=== PATIENT | male | born 1950 | race Caucasian/White ===

== ENCOUNTER 2018-01-19 16:09 | Inpatient (IN) ==
[2018-01-19 17:15] LABS: Basophils % 0.3 %; Eosinophils # 0.2 K/mcL (0.0-0.6); Eosinophils % 1.7 %; Hematocrit 38.9 % (37.5-50.1); Hemoglobin 13.1 g/dL (12.9-16.9); Immature Granulocytes % 0.3 % (0-4); Lymphocytes # 0.8 K/mcL (0.6-4.6); Mean Corpuscular HGB Conc 33.7 g/dL (31.6-35.5); Mean Corpuscular Hemoglobin 28.3 pg (28.0-33.3); Mean Platelet Volume 8.3 fL (9.4-12.4); Monocytes # 0.7 K/mcL (0.0-1.3); Neutrophils # 8.3 K/mcL (1.6-8.9); Platelet Count 198 K/mcL (140-400); Red Blood Count 4.63 M/mcL (4.19-5.50); Red Cell Distribution Width 13.1 % (11.5-14.5); Segmented Neutrophils % 82.7 %
[2018-01-19 17:32] LABS: Bilirubin,Urine Negative (Negative); Blood,Urine Negative (Negative); Clarity,Urine Clear (Clear); Color,Urine Yellow (Yellow); Glucose,Urine (UA) Normal (Normal); Ketones,Urine 15 mg/dL (Negative); Leukocyte Esterase,Urine Negative (Negative); Nitrite,Urine Negative (Negative); PH,Urine 7.5 pH Units (5.0-8.0); Protein,Urine Negative (Neg-Trace); Specific Gravity,Urine 1.008 (1.010-1.025); Urobilinogen,Urine Normal (Normal)
--- NOTE | 2018-01-19 17:35 | Emergency Department Note ---
Disposition Clinical Impression: Orthopnea, Hyponatremia Fluid overload Qualifiers: Hypervolemia type: unspecified Qualified Code(s): E87.70 - Fluid overload, unspecified Disposition: Admitted As Inpatient Condition: Fair Referrals: Renee Wheeler MD [Primary Care Provider] - Forms: ED Satisfaction Letter Time of Disposition: 20:21 General Adult HPI - General Chief complaint: ED Shortness of Breath/Dyspnea Stated complaint: "lots of chest congestion, feet swelling" Time Seen by Provider: 01/19/18 16:30 Source: patient Limitations: no limitations Nursing Notes Reviewed: Yes Vital Signs Reviewed: Yes - History of Present Illness HPI Narrative: 67-year-old male history of COPD up to 6 L oxygen supplementation and CAD s/p CABG presents emergency department with chest congestion in leg swelling. Other past several days he reports coughing up white frothy sputum. He is noticed that his legs are intermittently more swollen. He feels more short of breath when he lays down. He wears 4 L at baseline and 6 when he exerts himself or moves around. He denies any chest pain. He does noticed some acid when he lays down as well, and up he takes omeprazole for that. He denies any fevers. Denies any rhinorrhea. 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 Patient's bypass was performed up at [facility] in [facility] in 2005. Pain Scale: 0 - Related Data Home Medications Medication Instructions Recorded Confirmed Albuterol Sulfate [Proventil Hfa] 1 puff IH Q4HR PRN 03/08/16 03/08/16 Aspirin [Lo-Dose Aspirin EC] 81 mg PO DAILY 03/08/16 03/08/16 Budesonide/Formoterol 160/4.5 2 puff IH BIDR 03/08/16 03/08/16 [Symbicort 160/4.5] Carvedilol [Coreg] 6.25 mg PO BID 03/08/16 03/08/16 Guaifenesin 400 mg PO BID 03/08/16 03/08/16 Levothyroxine [Synthroid] 112 mcg PO DAILY 03/08/16 03/08/16 Losartan [Cozaar] 50 mg PO BID 03/08/16 03/08/16 Multivit,Ther Iron,Ca,FA & Min 1 tab PO DAILY 03/08/16 03/08/16 Nitroglycerin [Nitrostat] 0.4 mg SL PRN PRN 03/08/16 03/08/16 Omeprazole 20 mg PO BID 03/08/16 03/08/16 Potassium 595 mg PO PRN PRN 03/08/16 03/08/16 Simvastatin [Zocor] 10 mg PO HS 03/08/16 03/08/16 hydroCHLOROthiazide 12.5 mg PO DAILY 03/21/16 03/21/16 [Hydrochlorothiazide] Allergies Allergy/AdvReac Type Severity Reaction Status Date / Time Penicillins Allergy unknown Verified 01/19/18 20:48 All systems ED: reviewed and negative except as stated. Review of Systems: As Per HPI Constitutional: Reports: weakness. Denies: fever, chills Cardiovascular: Denies: chest pain Respiratory: Reports: cough, dyspnea Gastrointestinal: Denies: abdominal pain, nausea, vomiting Genitourinary: Denies: urgency, dysuria Musculoskeletal: Denies: back pain Integumentary: Denies: rash, abrasion Neurological: Denies: headache, weakness Past Medical History - Past Medical History Attestation: Yes The following information was validated with the patient. Source: patient Medical history: Reports: cancer, COPD, coronary artery disease, GERD, hyperlipidemia, hypertension, malignancy, myocardial infarction, thyroid disease Psychiatric history: Reports: no psych history - Social History Smoking Status: Former smoker Smokeless Tobacco Status: No Alcohol use: Reports: none Drug use: Reports: none Physical Exam - General Limitations: no limitations General appearance: alert, in no apparent distress - Head Head exam: atraumatic, normocephalic, normal inspection - Eye Eye exam: Present: normal appearance, PERRL, EOMI - ENT ENT exam: normal exam, normal oropharynx, mucous membranes moist - Neck Neck exam: Present: normal inspection, full ROM, trachea midline. Absent: tenderness, meningismus - Chest Chest inspection: Present: normal inspection, symmetric chest wall rise. Absent : tenderness - Respiratory Respiratory exam: Present: normal lung sounds bilaterally. Absent: respiratory distress - Expanded Respiratory Exam Location: rales: Lower - Cardiovascular Cardiovascular exam: Present: regular rate, normal rhythm, normal heart sounds. Absent: systolic murmur, diastolic murmur - Abdominal Exam Abdominal exam: Present: soft, Non-Tender, normal bowel sounds. Absent: tenderness, distention, guarding, rebound, rigidity - Extremities Exam Extremities exam: Present: normal inspection, full ROM, pedal edema (+1 bilateral). Absent: tenderness - Back Exam Back exam: Present: normal inspection, full ROM. Absent: tenderness, CVA tenderness (R), CVA tenderness (L) - Neurological Exam Neurological exam: Present: alert, oriented X3, CN II-XII intact, normal gait - Expanded Neurological Exam Patient oriented to: Present: person, place, time Speech: Present: fluid speech Cranial nerves: EOM function (II, III, IV, ): Normal, facial sensation (V): Normal, facial palsy (VII): Normal, gag reflex (IX): Normal, spinal accessory function (XI): Normal, tongue deviation (XII): Normal Motor strength - LUE: 5/5 Motor strength - RUE: 5/5 Motor strength - LLE: 5/5 Motor strength - RLE: 5/5 Upper motor neuron exam: syd neglect: Absent bilaterally, pronator drift: Absent bilaterally Sensory exam upper extremity: light touch: Normal Sensory exam lower extremity: light touch: Normal - Psychiatric Psychiatric exam: Present: normal affect, normal mood - Skin Skin exam: Present: warm, dry, intact, normal color. Absent: rash, cyanosis, diaphoresis Course Course Narrative: Patient presents with complaint of cough congestion orthopnea and leg edema. This has been ongoing for the past several days. Denies history of congestive heart failure. On examination patient slightly hypertensive but afebrile. He maintains good oxygen saturation on his home 4L. lungs are clear with diminished breath sounds in the lower bases. Heart's regular rate and rhythm. He has edema till bilateral lower extremities. They are symmetrical. No history of blood clots. Will evaluate for possible pneumonia or congestive heart failure. Patients in agreement with this plan. Final disposition pending workup. - Reevaluation(s) Reevaluation #1: Review of his labs do not show a leukocytosis. He has acute on chronic hyponatremia 123. This is the low doses ever been. His serum osmolality is also low. Suspect this is likely a fluid overload picture. He will likely require diuresis. His urinalysis is not consistent with infection. Patient ambulated throughout the department in his oxygen saturation did drop to 86% while on 6 L. He did not feel sure breath at that time. However when he returned to his room he was orthopneic. On examination he appears fluid overloaded and he is symptomatic with shortness of breath. Review of his labs show likely fluid overloaded given his low osmolality, hyponatremia hypochloremia. Patient has been given 40 mg of [address]ix here. CT scan of the chest did not reveal pneumonia or chest congestion. However given his symptoms recommended admission. Patient is agreeable to this plan as he lives by himself and is not feel safe going home. Impression is fluid overload, leg edema, shortness of breath and orthopnea. Time: 20:16 - Consultations Consultation #1: Spoke with on-call hospitalist chrali Garcia to admit for orthopnea, hyponatremia, fluid overload, leg edema. No further orders at this time Time: 20:48 Vital Signs Temperature 97.7 F 01/19/18 16:11 Pulse Rate 84 01/19/18 16:11 Respiratory Rate 22 01/19/18 16:11 Blood Pressure 167/88 01/19/18 16:11 O2 Sat by Pulse Oximetry 98 01/19/18 16:11 Temperature 97.7 F 01/19/18 16:11 Pulse Rate 92 01/19/18 16:45 Respiratory Rate 14 01/19/18 16:45 Blood Pressure 167/97 01/19/18 16:45 O2 Sat by Pulse Oximetry 97 01/19/18 16:46 Oxygen Delivery Oxygen Delivery Room Air Medical Decision Making - MDM Narrative Medical decision making narrative: Patient was discussed with my attending physician who agrees with ED management and final disposition. They independently evaluated the patient. Please refer to their attestation to this encounter for additional information. This note was generated by [employer] voice recognition software and as a result grammatical or spelling errors may occur using this program. - Medical Records Medical records reviewed: Yes I reviewed the patient's medical records. - Lab Data Lab results reviewed: Yes I reviewed the patient's lab results. Result diagrams: 01/19/18 17:06 01/19/18 17:06 Lab Results 01/19/18 01/19/18 01/19/18 Range/Units 17:06 17:06 17:06 WBC 10.0 (4.3-11.1) K/mcL RBC 4.63 (4.19-5.50) M/mcL Hgb 13.1 (12.9-16.9) g/dL Hct 38.9 (37.5-50.1) % MCV 84.0 (83.0-100.0) fL MCH 28.3 (28.0-33.3) pg MCHC 33.7 (31.6-35.5) g/dL RDW 13.1 (11.5-14.5) % Plt Count 198 (140-400) K/mcL MPV 8.3 L (9.4-12.4) fL Immature Gran % 0.3 (0-4) % Seg Neutrophils % 82.7 % Lymphocytes % 8.0 % Monocytes % 7.0 % Eosinophils % 1.7 % Basophils % 0.3 % Neutrophils # 8.3 (1.6-8.9) K/mcL Lymphocytes # 0.8 (0.6-4.6) K/mcL Monocytes # 0.7 (0.0-1.3) K/mcL Eosinophils # 0.2 (0.0-0.6) K/mcL Basophils # 0.0 (0.0-0.2) K/mcL Sodium 123 L (136-145) mEq/L Potassium 4.1 (3.5-5.1) mEq/L Chloride 81 L (98-107) mEq/L Carbon Dioxide 33 H (23-29) mEq/L BUN 13 (8-23) mg/dL Creatinine 0.59 L (0.70-1.30) mg/dL Est GFR ( Amer) > 60 (> 60) Est GFR (Non-Af Amer) > 60 (> 60) BUN/Creatinine Ratio 22 (6-26) Glucose 100 (70-105) mg/dL Calculated Osmolality 256 L (280-300) Calcium 9.5 (8.6-10.3) mg/dL Troponin I < 0.03 (< 0.04) ng/mL B-Natriuretic Peptide 29 (Less than 100) pg/mL Urine Color (Yellow) Urine Clarity (Clear) Urine pH (5.0-8.0) pH Units Ur Specific [place] (1.010-1.025) Urine Protein (Neg-Trace) mg/dL Urine Glucose (UA) (Normal) mg/dL Urine Ketones (Negative) mg/dL Urine Blood (Negative) Urine Nitrite (Negative) Urine Bilirubin (Negative) Urine Urobilinogen (Normal) mg/dL Ur Leukocyte Esterase (Negative) Ur Culture Indicated? (NO) 01/19/18 Range/Units 17:19 WBC (4.3-11.1) K/mcL RBC (4.19-5.50) M/mcL Hgb (12.9-16.9) g/dL Hct (37.5-50.1) % MCV (83.0-100.0) fL MCH (28.0-33.3) pg MCHC (31.6-35.5) g/dL RDW (11.5-14.5) % Plt Count (140-400) K/mcL MPV (9.4-12.4) fL Immature Gran % (0-4) % Seg Neutrophils % % Lymphocytes % % Monocytes % % Eosinophils % % Basophils % % Neutrophils # (1.6-8.9) K/mcL Lymphocytes # (0.6-4.6) K/mcL Monocytes # (0.0-1.3) K/mcL Eosinophils # (0.0-0.6) K/mcL Basophils # (0.0-0.2) K/mcL Sodium (136-145) mEq/L Potassium (3.5-5.1) mEq/L Chloride (98-107) mEq/L Carbon Dioxide (23-29) mEq/L BUN (8-23) mg/dL Creatinine (0.70-1.30) mg/dL Est GFR ( Amer) (> 60) Est GFR (Non-Af Amer) (> 60) BUN/Creatinine Ratio (6-26) Glucose (70-105) mg/dL Calculated Osmolality (280-300) Calcium (8.6-10.3) mg/dL Troponin I (< 0.04) ng/mL B-Natriuretic Peptide (Less than 100) pg/mL Urine Color Yellow (Yellow) Urine Clarity Clear (Clear) Urine pH 7.5 (5.0-8.0) pH Units Ur Specific [place] 1.008 L (1.010-1.025) Urine Protein Negative (Neg-Trace) mg/dL Urine Glucose (UA) Normal (Normal) mg/dL Urine Ketones 15 H (Negative) mg/dL Urine Blood Negative (Negative) Urine Nitrite Negative (Negative) Urine Bilirubin Negative (Negative) Urine Urobilinogen Normal (Normal) mg/dL Ur Leukocyte Esterase Negative (Negative) Ur Culture Indicated? NO (NO) - Radiology Data Radiology results reviewed: Yes I reviewed the patient's radiology results. Chest X-Ray 01/19/18 16:37 IMPRESSION: Stable portable study. D/ / Elba John Cha, MD / Elba John Cha, MD Interpreting Provider: Elba John Cha, MD Chest CT 01/19/18 18:16 IMPRESSION: No acute abnormality in the chest on the noncontrast CT. Stable elevation of the right hemidiaphragm with scarring at the right lung base. Moderate emphysema. D/ / 01/19/2018 19:32:45 Frankie Mckenzie MD / emily Interpreting Provider: Frankie Mckenzie MD - EKG Data EKG #1 EKG attestation: Yes I reviewed and interpreted this EKG. EKG results narrative: EKG performed 1641 normal sinus rhythm 81 beats per minute, intraventricular conduction delay, no ST elevation or depression, intervals within normal limits. Compared to EKG performed 09/13/2014 shows similar consistent findings of normal sinus rhythm Attestation Statement - Attestation Attestation: I, Carson Bush DO, examined this patient [id number] and my medical decision-making was reviewed with Hermes Fink DO , Resident Physician. I agree with the documented findings, disposition and treatment plan as described except to the extent set forth below. Please see my progress notes for details.
[2018-01-19 17:44] LABS: BUN/Creatinine Ratio 22 (6-26); Blood Urea Nitrogen 13 mg/dL (8-23); Calcium 9.5 mg/dL (8.6-10.3); Carbon Dioxide 33 mEq/L (23-29); Chloride 81 mEq/L (98-107); Glucose 100 mg/dL (70-105); Osmolality,Calculated 256 (280-300); Potassium 4.1 mEq/L (3.5-5.1); Sodium 123 mEq/L (136-145); Troponin I < 0.03 ng/mL (< 0.04); eGFR For African Americans > 60 (> 60); eGFR For Non-African Americans > 60 (> 60)
--- NOTE | 2018-01-19 19:06 | Emergency Department Note ---
Disposition Clinical Impression: Orthopnea, Hyponatremia Fluid overload Qualifiers: Hypervolemia type: unspecified Qualified Code(s): E87.70 - Fluid overload, unspecified Disposition: Admitted As Inpatient Condition: Fair Referrals: Renee Wheeler MD [Primary Care Provider] - Forms: ED Satisfaction Letter Time of Disposition: 20:51 General Adult HPI - General Chief complaint: ED Shortness of Breath/Dyspnea Stated complaint: "lots of chest congestion, feet swelling" Time Seen by Provider: 01/19/18 16:30 Source: patient Limitations: no limitations - History of Present Illness Pain Scale: 0 - Related Data Home Medications Medication Instructions Recorded Confirmed Albuterol Sulfate [Proventil Hfa] 1 puff IH Q4HR PRN 03/08/16 03/08/16 Aspirin [Lo-Dose Aspirin EC] 81 mg PO DAILY 03/08/16 03/08/16 Budesonide/Formoterol 160/4.5 2 puff IH BIDR 03/08/16 03/08/16 [Symbicort 160/4.5] Carvedilol [Coreg] 6.25 mg PO BID 03/08/16 03/08/16 Guaifenesin 400 mg PO BID 03/08/16 03/08/16 Levothyroxine [Synthroid] 112 mcg PO DAILY 03/08/16 03/08/16 Losartan [Cozaar] 50 mg PO BID 03/08/16 03/08/16 Multivit,Ther Iron,Ca,FA & Min 1 tab PO DAILY 03/08/16 03/08/16 Nitroglycerin [Nitrostat] 0.4 mg SL PRN PRN 03/08/16 03/08/16 Omeprazole 20 mg PO BID 03/08/16 03/08/16 Potassium 595 mg PO PRN PRN 03/08/16 03/08/16 Simvastatin [Zocor] 10 mg PO HS 03/08/16 03/08/16 hydroCHLOROthiazide 12.5 mg PO DAILY 03/21/16 03/21/16 [Hydrochlorothiazide] Allergies Allergy/AdvReac Type Severity Reaction Status Date / Time Penicillins Allergy unknown Verified 01/19/18 20:48 Past Medical History - Past Medical History Medical history: Reports: cancer, COPD, coronary artery disease, GERD, hyperlipidemia, hypertension, malignancy, myocardial infarction, thyroid disease Psychiatric history: Reports: no psych history - Social History Smoking Status: Former smoker Smokeless Tobacco Status: No Alcohol use: Reports: none Drug use: Reports: none Physical Exam - General Limitations: no limitations General appearance: alert Course Vital Signs Temperature 97.7 F 01/19/18 16:11 Pulse Rate 84 01/19/18 16:11 Respiratory Rate 22 01/19/18 16:11 Blood Pressure 167/88 01/19/18 16:11 O2 Sat by Pulse Oximetry 98 01/19/18 16:11 Temperature 97.7 F 01/19/18 16:11 Pulse Rate 92 01/19/18 16:45 Respiratory Rate 14 01/19/18 16:45 Blood Pressure 167/97 01/19/18 16:45 O2 Sat by Pulse Oximetry 97 01/19/18 16:46 Oxygen Delivery Oxygen Delivery Room Air Medical Decision Making - Lab Data Result diagrams: 01/19/18 17:06 01/19/18 17:06 Lab Results 01/19/18 01/19/18 01/19/18 Range/Units 17:06 17:06 17:06 WBC 10.0 (4.3-11.1) K/mcL RBC 4.63 (4.19-5.50) M/mcL Hgb 13.1 (12.9-16.9) g/dL Hct 38.9 (37.5-50.1) % MCV 84.0 (83.0-100.0) fL MCH 28.3 (28.0-33.3) pg MCHC 33.7 (31.6-35.5) g/dL RDW 13.1 (11.5-14.5) % Plt Count 198 (140-400) K/mcL MPV 8.3 L (9.4-12.4) fL Immature Gran % 0.3 (0-4) % Seg Neutrophils % 82.7 % Lymphocytes % 8.0 % Monocytes % 7.0 % Eosinophils % 1.7 % Basophils % 0.3 % Neutrophils # 8.3 (1.6-8.9) K/mcL Lymphocytes # 0.8 (0.6-4.6) K/mcL Monocytes # 0.7 (0.0-1.3) K/mcL Eosinophils # 0.2 (0.0-0.6) K/mcL Basophils # 0.0 (0.0-0.2) K/mcL Sodium 123 L (136-145) mEq/L Potassium 4.1 (3.5-5.1) mEq/L Chloride 81 L (98-107) mEq/L Carbon Dioxide 33 H (23-29) mEq/L BUN 13 (8-23) mg/dL Creatinine 0.59 L (0.70-1.30) mg/dL Est GFR ( Amer) > 60 (> 60) Est GFR (Non-Af Amer) > 60 (> 60) BUN/Creatinine Ratio 22 (6-26) Glucose 100 (70-105) mg/dL Calculated Osmolality 256 L (280-300) Calcium 9.5 (8.6-10.3) mg/dL Troponin I < 0.03 (< 0.04) ng/mL B-Natriuretic Peptide 29 (Less than 100) pg/mL Urine Color (Yellow) Urine Clarity (Clear) Urine pH (5.0-8.0) pH Units Ur Specific [place] (1.010-1.025) Urine Protein (Neg-Trace) mg/dL Urine Glucose (UA) (Normal) mg/dL Urine Ketones (Negative) mg/dL Urine Blood (Negative) Urine Nitrite (Negative) Urine Bilirubin (Negative) Urine Urobilinogen (Normal) mg/dL Ur Leukocyte Esterase (Negative) Ur Culture Indicated? (NO) 01/19/18 Range/Units 17:19 WBC (4.3-11.1) K/mcL RBC (4.19-5.50) M/mcL Hgb (12.9-16.9) g/dL Hct (37.5-50.1) % MCV (83.0-100.0) fL MCH (28.0-33.3) pg MCHC (31.6-35.5) g/dL RDW (11.5-14.5) % Plt Count (140-400) K/mcL MPV (9.4-12.4) fL Immature Gran % (0-4) % Seg Neutrophils % % Lymphocytes % % Monocytes % % Eosinophils % % Basophils % % Neutrophils # (1.6-8.9) K/mcL Lymphocytes # (0.6-4.6) K/mcL Monocytes # (0.0-1.3) K/mcL Eosinophils # (0.0-0.6) K/mcL Basophils # (0.0-0.2) K/mcL Sodium (136-145) mEq/L Potassium (3.5-5.1) mEq/L Chloride (98-107) mEq/L Carbon Dioxide (23-29) mEq/L BUN (8-23) mg/dL Creatinine (0.70-1.30) mg/dL Est GFR ( Amer) (> 60) Est GFR (Non-Af Amer) (> 60) BUN/Creatinine Ratio (6-26) Glucose (70-105) mg/dL Calculated Osmolality (280-300) Calcium (8.6-10.3) mg/dL Troponin I (< 0.04) ng/mL B-Natriuretic Peptide (Less than 100) pg/mL Urine Color Yellow (Yellow) Urine Clarity Clear (Clear) Urine pH 7.5 (5.0-8.0) pH Units Ur Specific [place] 1.008 L (1.010-1.025) Urine Protein Negative (Neg-Trace) mg/dL Urine Glucose (UA) Normal (Normal) mg/dL Urine Ketones 15 H (Negative) mg/dL Urine Blood Negative (Negative) Urine Nitrite Negative (Negative) Urine Bilirubin Negative (Negative) Urine Urobilinogen Normal (Normal) mg/dL Ur Leukocyte Esterase Negative (Negative) Ur Culture Indicated? NO (NO) Attestation Statement - Attestation Attestation: I, Carson Bush DO, examined this patient [id number] and my medical decision-making was reviewed with Hermes Fink DO , Resident Physician. I agree with the documented findings, disposition and treatment plan as described except to the extent set forth below. Please see my progress notes for details. 67-year-old male presents emergency room for evaluation of chest congestion and coughing of white colored sputum. Patient denies any recent fevers or chills nausea vomiting or diarrhea. Denies any headache or vision change. Patient does complain of orthopnea home to the point where he does feel short of breath while lying flat. He typically uses 4-6 L of oxygen at home chronically secondary to COPD and poor lung function. Patient has not had any new medications or medication changes at this point. Physical exam shows a relatively well-appearing gentleman tolerating his oxygen with no abnormalities in his vital signs. His head is atraumatic his mucous members are moist his full range of motion the neck with no stridor no trismus. His lungs are clear to auscultation bilaterally. He has had intermittent twinges of discomfort in his chest wall but he denies any specific anginal-like chest pain. Abdomen is soft nontender nondistended with no guarding no rigidity. Patient denies any urinary symptoms complaints of blood in his stool or in his urine at this time. Patient ambulated into the emergency room under his own power. He lives by himself at home and does not require any help to take care of himself. Patient is concerning for cardiac versus pulmonary-related issue causing the symptoms here today. He was screening evaluation a chest x-ray EKG labs according CBC chemistry troponin and BNP and urinalysis. Disposition will be determined once full workup and treatment course are established. He does not appear to have any coarse breath sounds or wheezing on examination and low clinical suspicion for exacerbation of COPD. please see documentation of the physical exam, medical intervention, medical decision-making and disposition in the resident physician's note. No critical care provider the patient's treatment course at this time [address] is unremarkable this time. Labs appear to be at baseline except for hyponatremia as well as decreased osmolality. This is concerning for fluid overload. Patient was ambulated around the emergency room his pulse ox did drop to 87% on his typical 6 L. Patient denied any shortness of breath at that time. Patient is orthopneic while lying in the bed. He also has been coughing up white frothy colored sputum over the last several days. This is all new in comparison to his previous fluid overload symptoms. There is concern for nondiagnostic imaging modalities despite the fact that the patient is orthopneic and appearance of fluid overload based on symptoms and presentation. Patient is also concerned because the low sodium is ever had as well as potentially volume overloaded. Patient will be admitted at this time for diuresis as well as concentration of the sodium and then reevaluation of the fluid overload symptoms. Patient does not feel comfortable going home to his house at this time considering does live by himself. Is also concerned that he may fall or had issues secondary to his increased work of breathing. Admission process to be completed at this point. Patient will be observed in emergency room to the admission process is completed.
[2018-01-19] MEDS ORDERED: Furosemide 40 MG/4 ML VIAL IVP ONE (20:14)
--- NOTE | 2018-01-19 21:03 | Internal Med History&Physical ---
Date of Encounter: 01/20/18 Time of Encounter: 21:00 Internal Medicine - H&P: HPI Chief complaint: Swelling Admitted From: Emergency Dept Plans for Post Hospital Care: Home History of present illness: Mr. Nugent is a 67 year old male with history of COPD on about 4-6 L, coronary artery disease, GERD, hyperlipidemia, hypertension, malignancy, myocardial infarction, thyroid disease who presents to ED complains of chest congestion. He has a chronic cough but nothing above baseline. He has noticed that his legs are more swollen has been shortened breath as well. No chest pain. Dyspnea is mostly on exertion. The patient recently had his valsartan switched to amlodipine and Coreg by his manager scientific a couple of months ago. Denies fever, chills, nausea, vomiting, chest pain, abdominal pain, diarrhea, constipation, urinary symptoms, or neurological symptoms. In the ED the patient had laboratory workup that showed normal BNP and a clear chest x-ray. Sodium was 123. The patient was given Lasix 40 mg IV in the ED. Past Med Surg Social Fam HX - Past Medical History Medical history: cancer, COPD, coronary artery disease, GERD, hyperlipidemia, hypertension, malignancy, myocardial infarction, thyroid disease Psychiatric history: no psych history - Past Surgical History Additional surgical history: dermatological - Social History Smoking Status: Former smoker Smokeless Tobacco Status: No Alcohol use: none Drug use: none - Family History Brother Adopted: No Family Member Ethnicity: Non- Living Status: Hx Family Cardiac Disorders: No Hx Family Respiratory Disorders: No Hx Family Cancer: Yes (all over) Hx Family GI Disorders: No Hx Family Endocrine Disorder: No Hx Family Neuromuscular Disorders: No Hx Family Neurologic Disorders: No Hx Family HEENT Disorders: Yes (glasses) Hx Family Autoimmune Disorders: No Internal Medicine - H&P: Meds Albuterol Sulfate [Proventil Hfa] 1 puff IH Q4HR PRN 03/08/16 [History] Aspirin [Lo-Dose Aspirin EC] 81 mg PO DAILY 03/08/16 [History] Budesonide/Formoterol 160/4.5 [Symbicort 160/4.5] 2 puff IH BIDR 03/08/16 [ History] Carvedilol [Coreg] 3.125 mg PO BID 03/08/16 [History] Guaifenesin 400 mg PO BID 03/08/16 [History] Levothyroxine [Synthroid] 125 mcg PO DAILY 03/08/16 [History] Multivit,Ther Iron,Ca,FA & Min 1 tab PO DAILY 03/08/16 [History] Nitroglycerin [Nitrostat] 0.4 mg SL PRN PRN 03/08/16 [History] Omeprazole 20 mg PO BID 03/08/16 [History] Potassium 595 mg PO PRN PRN 03/08/16 [History] Simvastatin [Zocor] 10 mg PO HS 03/08/16 [History] hydroCHLOROthiazide [Hydrochlorothiazide] 25 mg PO DAILY 03/21/16 [History] Amlodipine Besylate [Amlodipine Besylate] 10 mg PO DAILY 01/19/18 [History] Clopidogrel [Plavix] 75 mg PO DAILY 01/19/18 [History] Finasteride [Proscar] 5 mg PO DAILY 01/19/18 [History] 3 Allergy/AdvReac Type Severity Reaction Status Date / Time Penicillins Allergy unknown Verified 01/19/18 20:48 All Systems PM: A 10-system review of systems was performed and is negative for pertinent findings except as documented above in the HPI. Review of systems: All systems reviewed are negative except as mentioned above - Constitutional Vitals: Temp Pulse Resp BP Pulse Ox 97.7 F 92 14 167/97 97 01/19/18 16:11 01/19/18 16:45 01/19/18 16:45 01/19/18 16:45 01/19/18 16:46 Exam: GEN: NAD HEENT: AT, NC, No cyanosis, oral mucosa is moist, No JVD Lymphatics: No lymphadenoapthy Eyes: Extrocular muscles intact, anicteric CVS:RRR. S1, S2, No m/r/g RESP: CTAB ABD: Soft, NT, ND, +BS EXT: 1+ lower extremity edema at the feet and ankles, No rashes, 2+ DP NEURO: Nonfocal, CN II-XII intact, No focal motor or sensory deficits Psych: Cooperative, Not anxious or depressed Internal Med - H&P Results - Labs CBC & Chem 7: 01/19/18 17:06 01/20/18 01:51 Labs: Short CBC 01/19/18 Range/Units 17:06 WBC 10.0 (4.3-11.1) K/mcL Hgb 13.1 (12.9-16.9) g/dL Hct 38.9 (37.5-50.1) % Plt Count 198 (140-400) K/mcL Neutrophils # 8.3 (1.6-8.9) K/mcL BMP 01/19/18 17:06 Sodium 123 L Potassium 4.1 Chloride 81 L Carbon Dioxide 33 H BUN 13 Creatinine 0.59 L Glucose 100 Calcium 9.5 Cardiac Enzymes 01/19/18 Range/Units 17:06 Troponin I < 0.03 (< 0.04) ng/mL Urine 01/19/18 Range/Units 17:19 Urine Color Yellow (Yellow) Urine Clarity Clear (Clear) Urine pH 7.5 (5.0-8.0) pH Units Ur Specific [place] 1.008 L (1.010-1.025) Urine Protein Negative (Neg-Trace) mg/dL Urine Glucose (UA) Normal (Normal) mg/dL - Impressions ITS Impressions Chest X-Ray 01/19/18 16:37 IMPRESSION: Stable portable study. D/ / Elba John Cha, MD / Elba John Cha, MD Interpreting Provider: Elba John Cha, MD Chest CT 01/19/18 18:16 IMPRESSION: No acute abnormality in the chest on the noncontrast CT. Stable elevation of the right hemidiaphragm with scarring at the right lung base. Moderate emphysema. D/ / 01/19/2018 19:32:45 Frankie Mckenzie MD / emily Interpreting Provider: Frankie Mckenzie MD - Assessment and plan (1) Edema Current Visit: Yes Status: Acute Assessment and plan: I do not believe the patient is in CHF exacerbation. I believe this possibly could be secondary to Norvasc. Will hold that for now. check an echo. Patient was given 40 mg IV Lasix in the ED. I would hold off on more Lasix till repeat sodium in 6 hours. May continue lasix if sodium trends up. dopplers to rule out DVT. Qualifiers: Edema type: unspecified Qualified Code(s): R60.9 - Edema, unspecified (2) Hyponatremia Current Visit: Yes Status: Acute Assessment and plan: Possibly from being on HCTZ vs. new CHF. Will get urine sodium and urine osm. Hold off on more lasix for now till repeat sodium in 6 hours. Will dose further lasix if sodium improves after first dose of lasix given in the ED. May need nephrology consult. Given lasix 40 mg IV in the ED. (3) CAD (coronary artery disease) Current Visit: Yes Status: Acute Assessment and plan: c/w cardiac meds. Qualifiers: Coronary Disease-Associated Artery/Lesion type: bypass graft [place] vs. transplanted heart: [place] heart Associated angina: without angina Qualified Code(s): I25.810 - Atherosclerosis of coronary artery bypass graft(s) without angina pectoris (4) COPD (chronic obstructive pulmonary disease) Current Visit: Yes Status: Acute Assessment and plan: Not in exacerbation. c/w inhalers. c/w O2 support. On chronic O2 Qualifiers: COPD type: unspecified COPD Qualified Code(s): J44.9 - Chronic obstructive pulmonary disease, unspecified (5) HTN (hypertension) Current Visit: Yes Status: Acute Assessment and plan: Hold norvasc. c/w rest of home antihypertensives. Qualifiers: Hypertension type: essential hypertension Qualified Code(s): I10 - Essential (primary) hypertension (6) DVT prophylaxis Current Visit: Yes Status: Acute Assessment and plan: heparin SQ - Time Spent With Patient Total time spent is greater than 50% in coordination of care (as documented) at patient's floor/unit and/or counseling patient:
[2018-01-19] MEDS ORDERED: Naloxone 0.4 MG/ML INJ IVP PRN (21:08)
[2018-01-19] MEDS ORDERED: Acetaminophen 325 MG TABLET PO PRN (21:08)
[2018-01-20 02:39] LABS: BUN/Creatinine Ratio 21 (6-26); Blood Urea Nitrogen 13 mg/dL (8-23); Calcium 9.1 mg/dL (8.6-10.3); Carbon Dioxide 37 mEq/L (23-29); Chloride 82 mEq/L (98-107); Glucose 92 mg/dL (70-105); Osmolality,Calculated 264 (280-300); Potassium 3.4 mEq/L (3.5-5.1); Sodium 127 mEq/L (136-145); eGFR For African Americans > 60 (> 60); eGFR For Non-African Americans > 60 (> 60)
[2018-01-20 07:06] LABS: Basophils # 0.1 K/mcL (0.0-0.2); Basophils % 0.5 %; Eosinophils # 0.2 K/mcL (0.0-0.6); Eosinophils % 2.1 %; Hematocrit 39.6 % (37.5-50.1); Hemoglobin 12.8 g/dL (12.9-16.9); Immature Granulocytes % 0.4 % (0-4); Lymphocytes # 0.7 K/mcL (0.6-4.6); Lymphocytes % 7.4 %; Mean Corpuscular HGB Conc 32.3 g/dL (31.6-35.5); Mean Corpuscular Hemoglobin 26.8 pg (28.0-33.3); Mean Platelet Volume 9.2 fL (9.4-12.4); Monocytes # 0.9 K/mcL (0.0-1.3); Monocytes % 8.9 %; Neutrophils # 7.7 K/mcL (1.6-8.9); Platelet Count 236 K/mcL (140-400); Red Blood Count 4.77 M/mcL (4.19-5.50); Red Cell Distribution Width 13.2 % (11.5-14.5); Segmented Neutrophils % 80.7 %
[2018-01-20 07:22] LABS: BUN/Creatinine Ratio 23 (6-26); Blood Urea Nitrogen 12 mg/dL (8-23); Carbon Dioxide 36 mEq/L (23-29); Chloride 82 mEq/L (98-107); Glucose 95 mg/dL (70-105); Osmolality,Calculated 260 (280-300); Potassium 3.8 mEq/L (3.5-5.1); Sodium 125 mEq/L (136-145); eGFR For African Americans > 60 (> 60); eGFR For Non-African Americans > 60 (> 60)
[2018-01-20] MEDS: Aspirin Enteric Coated 81 MG Tablet PO SCH (07:56)
[2018-01-20] MEDS: Multivit/Ca/Min/Fe/FA 1 TAB TABLET PO SCH (07:56)
[2018-01-20] MEDS: Finasteride 5 MG TABLET PO SCH (07:56)
[2018-01-20] MEDS ORDERED: Furosemide 40 MG/4 ML VIAL IVP SCH (08:00)
[2018-01-20] MEDS: Budesonide/Formoterol 160/4.5 MDI IH SCH ×2 (10:15→20:34)
[2018-01-20] MEDS ORDERED: Nitroglycerin 0.4 MG TAB.SUBL SL PRN (11:53)
--- NOTE | 2018-01-20 11:54 | Internal Med Progress Note ---
Date of Encounter: 01/20/18 Time of Encounter: 11:52 - Assessment and plan (1) Hyponatremia Current Visit: Yes Status: Chronic Assessment and plan: Chronic Asymptomatic At baseline Resume home meds (2) Edema Current Visit: Yes Status: Acute Assessment and plan: Unlikely CHF BNP is WNL Patient has no chest symptoms, Chest CT is unremarkable Hold lasix Await ECHO Continue home dose of norvasc and HCTZ Follow Venous doppler of LE Qualifiers: Edema type: unspecified Qualified Code(s): R60.9 - Edema, unspecified (3) CAD (coronary artery disease) Current Visit: Yes Status: Chronic Assessment and plan: c/w cardiac meds. Qualifiers: Coronary Disease-Associated Artery/Lesion type: bypass graft [place] vs. transplanted heart: [place] heart Associated angina: without angina Qualified Code(s): I25.810 - Atherosclerosis of coronary artery bypass graft(s) without angina pectoris (4) COPD (chronic obstructive pulmonary disease) Current Visit: Yes Status: Chronic Assessment and plan: Not in exacerbation. c/w inhalers. c/w O2 support. On chronic O2 Qualifiers: COPD type: unspecified COPD Qualified Code(s): J44.9 - Chronic obstructive pulmonary disease, unspecified (5) HTN (hypertension) Current Visit: Yes Status: Chronic Assessment and plan: REsume home meds Qualifiers: Hypertension type: essential hypertension Qualified Code(s): I10 - Essential (primary) hypertension (6) DVT prophylaxis Current Visit: Yes Status: Acute Assessment and plan: heparin SQ (7) Chronic respiratory failure Current Visit: Yes Status: Chronic Assessment and plan: continue home O2 Qualifiers: Respiratory failure complication: hypoxia Qualified Code(s): J96.11 - Chronic respiratory failure with hypoxia - Time Spent With Patient Total time spent is greater than 50% in coordination of care (as documented) at patient's floor/unit and/or counseling patient: - Subjective Interval history: Seen and evaluated at bedside Known CRF on O2 at home admitted and being managed for edema, unlikely CHF BNP is WNL O2 is at baseline, edema is trace No new complains Awaiting ECHO hyponatremia is chronic and dates back to 2014 - Constitutional Vitals: Temp Pulse Resp BP Pulse Ox 97.4 F L 67 14 132/80 95 01/20/18 10:39 01/20/18 10:39 01/20/18 10:39 01/20/18 10:39 01/20/18 10:39 General appearance: Present: A&O X 3, pleasant, no acute distress - Head Head exam: Present: atraumatic, normocephalic - Eye Eye exam: Present: PERRL, conjuntiva pink, sclera anicteric Pupils: Present: PERRL - Neck Neck exam general surgery: Present: supple, trachea midline. Absent: lymphadenopathy - Respiratory Respiratory exam: Present: CTAB. Absent: accessory muscle use, rales, rhonchi, wheezes - Cardiovascular Cardiovascular exam: Present: RRR, +S1, +S2. Absent: diastolic murmur, gallop, rubs, systolic murmur - GI/Abdominal GI/Abdominal exam: Present: normal bowel sounds, soft, no peritoneal signs. Absent: distended, tenderness - Extremities Exam Extremities exam: Present: pedal edema (trace), warm, radial pulses palpable and symmetrical. Absent: calf tenderness, cyanotic - Neurological Exam Neurological exam: Present: alert, CN II-XII intact, oriented X3, no focal deficits. Absent: pronater drift, facial droop, speech deficit - Skin Skin exam: Present: dry, intact Internal Medicine: Result - Labs CBC & Chem 7: 01/20/18 05:48 01/20/18 05:48 Labs: Short CBC 01/20/18 Range/Units 05:48 WBC 9.5 (4.3-11.1) K/mcL Hgb 12.8 L (12.9-16.9) g/dL Hct 39.6 (37.5-50.1) % Plt Count 236 (140-400) K/mcL Neutrophils # 7.7 (1.6-8.9) K/mcL BMP 01/20/18 01/20/18 01:51 05:48 Sodium 127 L 125 L Potassium 3.4 L 3.8 Chloride 82 L 82 L Carbon Dioxide 37 H 36 H BUN 13 12 Creatinine 0.62 L 0.53 L Glucose 92 95 Calcium 9.1 9.0 Consult Discharge Plan - Plan Referrals: Renee Wheeler MD [Primary Care Provider] - 01/23/18 2:00 pm
--- NOTE | 2018-01-20 17:22 | Electrocardiograph Report ---
[place] [id number] Test Date: 2018-01-19 Pat Name: Austin Nugent Department: 104 Room: 2A12 Gender: M [employer]: RENU : 1950 Requested By: Hermes Fink Order Number: [id number] Reading MD: Patricia Antonio Measurements Intervals [place] Rate: 81 P: 13 MI: 169 QRS: -1 QRSD: 114 T: 74 QT: 376 QTc: 414 Interpretive Statements SINUS RHYTHM INTRAVENTRICULAR CONDUCTION DELAY [110+ ms QRS DURATION] NONSPECIFIC T-WAVE ABNORMALITY Electronically Signed On 01-20-2018 17:20:49 EDT by Patricia Antonio
[2018-01-21 02:31] LABS: BUN/Creatinine Ratio 22 (6-26); Blood Urea Nitrogen 15 mg/dL (8-23); Carbon Dioxide 36 mEq/L (23-29); Chloride 83 mEq/L (98-107); Glucose 100 mg/dL (70-105); Osmolality,Calculated 259 (280-300); Potassium 4.1 mEq/L (3.5-5.1); Sodium 124 mEq/L (136-145); eGFR For African Americans > 60 (> 60); eGFR For Non-African Americans > 60 (> 60)
[2018-01-21] MEDS: Budesonide/Formoterol 160/4.5 MDI IH SCH ×2 (07:35→19:53)
[2018-01-21] MEDS ORDERED: Isovue-370 500 ML INFUS..BTL IV ONE (08:07)
[2018-01-21] MEDS: amLODIPine 5 MG TABLET PO SCH (08:13)
[2018-01-21] MEDS: Finasteride 5 MG TABLET PO SCH (08:13)
[2018-01-21] MEDS: Multivit/Ca/Min/Fe/FA 1 TAB TABLET PO SCH (08:13)
[2018-01-21] MEDS: Aspirin Enteric Coated 81 MG Tablet PO SCH (08:13)
--- NOTE | 2018-01-21 08:18 | Internal Med Progress Note ---
Date of Encounter: 01/21/18 Time of Encounter: 08:00 - Assessment and plan (1) Diastolic CHF Current Visit: Yes Status: Acute Assessment and plan: Acute diastolic CHF. continue lasix. Echo showed EF 55% with diastolic dysfunction. Improving Qualifiers: Heart failure chronicity: acute Qualified Code(s): I50.31 - Acute diastolic (congestive) heart failure (2) Hyponatremia Current Visit: Yes Status: Chronic Assessment and plan: Seen by renal.Will d/c HCTZ and continue lasix. monitor sodium levels. Cardiac diet changed to regular. Follow up TSH, cortisol, serum osmolalility and uric acid per renal recs (3) Edema Current Visit: Yes Status: Acute Assessment and plan: Likely 2/2 to acute diastolic CHF.Continue lasix Qualifiers: Edema type: unspecified Qualified Code(s): R60.9 - Edema, unspecified (4) CAD (coronary artery disease) Current Visit: Yes Status: Chronic Assessment and plan: c/w cardiac meds. Qualifiers: Coronary Disease-Associated Artery/Lesion type: bypass graft [place] vs. transplanted heart: [place] heart Associated angina: without angina Qualified Code(s): I25.810 - Atherosclerosis of coronary artery bypass graft(s) without angina pectoris (5) COPD (chronic obstructive pulmonary disease) Current Visit: Yes Status: Chronic Assessment and plan: Not in exacerbation. c/w inhalers. c/w O2 support. On chronic O2 Qualifiers: COPD type: unspecified COPD Qualified Code(s): J44.9 - Chronic obstructive pulmonary disease, unspecified (6) HTN (hypertension) Current Visit: Yes Status: Chronic Assessment and plan: REsume home meds Qualifiers: Hypertension type: essential hypertension Qualified Code(s): I10 - Essential (primary) hypertension (7) DVT prophylaxis Current Visit: Yes Status: Acute Assessment and plan: heparin SQ (8) Chronic respiratory failure Current Visit: Yes Status: Chronic Assessment and plan: continue home O2 Qualifiers: Respiratory failure complication: hypoxia Qualified Code(s): J96.11 - Chronic respiratory failure with hypoxia - Time Spent With Patient Total time spent is greater than 50% in coordination of care (as documented) at patient's floor/unit and/or counseling patient: - Subjective Interval history: NO acute events overnight - Constitutional Vitals: Temp Pulse Resp BP Pulse Ox 97.7 F 80 16 102/68 94 06/05/18 07:33 01/21/18 07:33 01/21/18 07:35 01/21/18 07:33 01/21/18 07:35 General appearance: Present: A&O X 3, pleasant, no acute distress - Head Head exam: Present: atraumatic, normocephalic - Eye Eye exam: Present: PERRL, conjuntiva pink, sclera anicteric Pupils: Present: PERRL - Neck Neck exam general surgery: Present: supple, trachea midline. Absent: lymphadenopathy - Respiratory Respiratory exam: Present: CTAB. Absent: accessory muscle use, rales, rhonchi, wheezes - Cardiovascular Cardiovascular exam: Present: RRR, +S1, +S2. Absent: diastolic murmur, gallop, rubs, systolic murmur - GI/Abdominal GI/Abdominal exam: Present: normal bowel sounds, soft, no peritoneal signs. Absent: distended, tenderness - Extremities Exam Extremities exam: Present: warm, radial pulses palpable and symmetrical. Absent : calf tenderness, cyanotic, pedal edema - Neurological Exam Neurological exam: Present: CN II-XII intact, oriented X3, no focal deficits. Absent: pronater drift, facial droop, speech deficit - Skin Skin exam: Present: dry, intact Internal Medicine: Result - Labs CBC & Chem 7: 01/20/18 05:48 01/21/18 01:32 Labs: BMP 01/21/18 01:32 Sodium 124 L Potassium 4.1 Chloride 83 L Carbon Dioxide 36 H BUN 15 Creatinine 0.68 L Glucose 100 Calcium 9.0 - Impressions Impressions Echocardiogram 01/20/18 13:00 Impressions: Technically challenging - not all windows are well visualized. LVEF 55%. Mild left ventricular diastolic dysfunction. RV is not well evaluated. RA size not well visualized. RA appears compressed by an extracardiac structure. Consider dedicated CT chest. Mild tricuspid regurgitation. No pulmonary hypertension by TR gradient. IVC not well visualized to estimate RVSP. Aneurysmal interatrial septal. There is a PFO by agitated saline contrast. Pleural fluid is not seen on this study. Left Ventricular Wall Motion: Rest Echo Findings The apex, apical inferior, mid inferior, basal inferior, apical anterior, mid anterior, basal anterior, mid anterior septal, mid inferior lateral, basal anterior septal and basal inferior lateral souza were not visualized. All other wall segments showed normal motion. Findings: Study Quality * Technically challenging - not all windows are well visualized. ECG Findings * Normal sinus rhythm. Left Ventricle * LVEF 55%. * Normal LV chamber size. * LV wall thickness measurements not well obtained. * Mild left ventricular diastolic dysfunction. Right Ventricle * RV is not well evaluated. Left Atrium * Moderately dilated left atrium. Right Atrium * RA size not well visualized. RA appears compressed by extracardiac structure. Aortic Valve * No aortic regurgitation. * Aortic valve not well visualized. * No aortic stenosis. Mitral Valve * No mitral regurgitation. * Normal mitral valve structure. * No mitral stenosis. Tricuspid Valve * Tricuspid valve not well visualized. * Mild tricuspid regurgitation. Pulmonic Valve * Pulmonic valve is not well visualized. * No pulmonic stenosis. * No pulmonic regurgitation. Pulmonary Artery * Pulmonary artery not well visualized. Aorta * Normally sized aortic root. Pericardium * There is no pericardial effusion present. Interatrial Septum * Aneurysmal interatrial septal. * There is a PFO by agitated saline contrast, IVC * The IVC is not well evaluated. Consult Discharge Plan - Plan Referrals: Renee Wheeler MD [Primary Care Provider] - 01/23/18 2:00 pm
[2018-01-21] MEDS ORDERED: hydroCHLOROthiazide 25 MG TABLET PO SCH (09:00)
--- NOTE | 2018-01-21 13:35 | Nephrology Consult Note ---
<Earnestine Zazueta - Last Filed: 01/21/18 13:42> Date of Encounter: 01/21/18 Time of Encounter: 13:19 Assessment and Plan (1) Hyponatremia Status: Chronic Hydrochlorothiazide d/kriss. Cardiac diet changed to regular diet with 1.5 fluid restriction. Serum Osmo, uric acid, cortisol and TSH ordered. (2) Edema Status: Acute Seems resolved, no edema with examination. Qualifiers: Edema type: unspecified Qualified Code(s): R60.9 - Edema, unspecified (3) HTN (hypertension) Status: Chronic BP 150/91 HCTZ d/kriss. Qualifiers: Hypertension type: essential hypertension Qualified Code(s): I10 - Essential (primary) hypertension History of Present Illness - Reason for Consult Consult date: 01/21/18 hyponatremia - Chief Complaint shortness of breath, edema - History of Present Illness Mr. Nugent is a 67 year old male who presented to the ED for chest congestion and bilateral lower extremity edema. PMH: COPD, coronary artery disease, GERD, hyperlipidemia, & hypertension. No known kidney disease or family history of kidney disease. Has not seen a certified pediatric nurse practitioner that he knows of. Initial NA was 123 this stay but past records indicate that his NA has been low since at least 2014. Serum studies and urine studies ordered. Past Med Surg Social Fam HX - Past Medical History Medical history: cancer, COPD, coronary artery disease, GERD, hyperlipidemia, hypertension, malignancy, myocardial infarction, thyroid disease Psychiatric history: no psych history - Past Surgical History Additional surgical history: dermatological - Social History Smoking Status: Former smoker Smokeless Tobacco Status: No Alcohol use: none Drug use: none - Family History Brother Adopted: No Family Member Ethnicity: Non- Living Status: Hx Family Cardiac Disorders: No Hx Family Respiratory Disorders: No Hx Family Cancer: Yes (all over) Hx Family GI Disorders: No Hx Family Endocrine Disorder: No Hx Family Neuromuscular Disorders: No Hx Family Neurologic Disorders: No Hx Family HEENT Disorders: Yes (glasses) Hx Family Autoimmune Disorders: No Medications and Allergies Albuterol Sulfate [Proventil Hfa] 1 puff IH Q4HR PRN 03/08/16 [History] Budesonide/Formoterol 160/4.5 [Symbicort 160/4.5] 2 puff IH QAM 03/08/16 [ History] Carvedilol [Coreg] 3.125 mg PO BID 03/08/16 [History] Multivitamin [One Daily Essential] 1 tab PO DAILY 03/08/16 [History] Nitroglycerin [Nitrostat] 0.4 mg SL Q5M PRN 03/08/16 [History] Omeprazole [PriLOSEC] 40 mg PO DAILY 03/08/16 [History] Simvastatin [Zocor] 10 mg PO HS 03/08/16 [History] Amlodipine Besylate 10 mg PO DAILY 01/19/18 [History] Clopidogrel [Plavix] 75 mg PO DAILY 01/19/18 [History] Finasteride [Proscar] 5 mg PO DAILY 01/19/18 [History] Aspirin [Lo-Dose Aspirin EC] 81 mg PO DAILY 01/20/18 [History] Levothyroxine [Synthroid] 112 mcg PO 0630 01/20/18 [History] Loratadine [Claritin] 10 mg PO DAILY 01/20/18 [History] Tamsulosin [Flomax] 0.4 mg PO DAILY 01/20/18 [History] Furosemide [Lasix] 40 mg PO BID #60 tab 01/22/18 [Rx] GuaiFENesin ER [Mucinex] 600 mg PO BID #60 tbbp.12hr 01/22/18 [Rx] Sodium Chloride [Sodium Chloride Tab] 1 gm PO BID #60 tablet 01/22/18 [Rx] 3 Allergy/AdvReac Type Severity Reaction Status Date / Time Penicillins Allergy unknown Verified 01/20/18 12:31 Review of Systems Nose, mouth and throat: no dizziness Cardiovascular: no chest pain at rest Respiratory: cough, no wheezing Gastrointestinal: no change in bowel habits Neurological: no dizziness, no focal weakness, no tremor(s) Exam - Vital Signs Vital signs: Initial Vital Signs Temp Pulse Resp BP Pulse Ox 97.7 F 84 22 167/88 98 01/19/18 16:11 01/19/18 16:11 01/19/18 16:11 01/19/18 16:11 01/19/18 16:11 Vital Signs - Last 8 Hours Temp Pulse Resp BP Pulse Ox 01/21/18 11:51 97.4 F L 70 16 150/91 95 01/21/18 07:35 16 94 01/21/18 07:33 97.7 F 80 15 102/68 94 Intake and Output 01/20/18 01/21/18 01/21/18 23:59 07:59 15:59 Intake Total 480 / 480 Output Total 600 / 600 Balance 480 / 480 -600 / -600 Intake: Oral 480 / 480 Output: Urine 600 / 600 Other: Meal Dinner Percent of Meal Consumed 100% - General Appearance General appearance: well-developed, well-nourished, appears started age EENT: ATNC, hearing intact, vision intact Neck: supple Respiratory: clear Cardiology: no edema, regular rate, regular rhythm, normal S1, normal S2 Gastrointestinal: normoactive bowel sounds, no tenderness, no guarding Integumentary: no rash, warm and dry Neurologic: alert and oriented x3 Psychiatric: mood/affect appropriate, cooperative Results - Lab Results 01/20/18 05:48 01/21/18 01:32 Most recent lab results Calcium 9.0 mg/dL (8.6-10.3) 01/21/18 01:32 Magnesium 1.6 mg/dL (1.6-2.6) 01/21/18 06:33 Urine Sodium 79.8 mEq/L 01/20/18 21:25 Consult Discharge Plan - Plan Referrals: Bandar Dacosta MD [Partnered Physician] - 02/20/18 11:40 am (Please follow up as schedule...) Gerardo Casarez DO [Partnered Physician] - 02/12/18 11:30 am (Please follow up as schedule..) Renee Wheeler MD [Primary Care Provider] - 01/23/18 2:00 pm (Please follow up as schedule...) Prescriptions: Furosemide [Lasix] 40 mg PO BID #60 tab GuaiFENesin ER [Mucinex] 600 mg PO BID #60 tbbp.12hr Sodium Chloride [Sodium Chloride Tab] 1 gm PO BID #60 tablet <David Choe - Last Filed: 01/27/18 07:12> Date of Encounter: 01/21/18 Exam - Vital Signs Vital signs: Initial Vital Signs Temp Pulse Resp BP Pulse Ox 97.7 F 84 22 167/88 98 01/19/18 16:11 01/19/18 16:11 01/19/18 16:11 01/19/18 16:11 01/19/18 16:11 Results - Lab Results 01/22/18 05:24 01/22/18 05:24 Most recent lab results Calcium 9.2 mg/dL (8.6-10.3) 01/22/18 05:24 Magnesium 1.6 mg/dL (1.6-2.6) 01/21/18 06:33 Urine Sodium 79.8 mEq/L 01/20/18 21:25 - Attending Attestation I examined this patient and my medical decision-making was reviewed with the Resident Physician. I agree with the documented findings, disposition and treatment plan as described except to the extent set forth below. Pt seen and examined with hyponatremia that appears chronic on review with HCTZ noted as one of his medication in addition to lasix. Will stop HCTZ immediately and initiate hyponatremia workup.
[2018-01-21 14:41] LABS: Uric Acid 4.8 mg/dL (2.3-7.6)
[2018-01-21 14:51] LABS: Thyroid Stimulating Hormone 1.274 mcIU/mL (0.340-5.600)
[2018-01-21] MEDS ORDERED: GuaiFENesin Liq 200 MG/10 ML UDC PO PRN (15:18)
[2018-01-22 06:05] LABS: Basophils % 0.4 %; Eosinophils # 0.3 K/mcL (0.0-0.6); Eosinophils % 2.4 %; Hematocrit 40.6 % (37.5-50.1); Hemoglobin 13.4 g/dL (12.9-16.9); Immature Granulocytes % 0.4 % (0-4); Lymphocytes # 0.9 K/mcL (0.6-4.6); Lymphocytes % 8.1 %; Mean Corpuscular Hemoglobin 27.1 pg (28.0-33.3); Monocytes % 8.5 %; Neutrophils # 9.1 K/mcL (1.6-8.9); Platelet Count 228 K/mcL (140-400); Red Blood Count 4.95 M/mcL (4.19-5.50); Red Cell Distribution Width 13.1 % (11.5-14.5); Segmented Neutrophils % 80.2 %
[2018-01-22 06:21] LABS: BUN/Creatinine Ratio 25 (6-26); Blood Urea Nitrogen 14 mg/dL (8-23); Calcium 9.2 mg/dL (8.6-10.3); Carbon Dioxide 34 mEq/L (23-29); Chloride 81 mEq/L (98-107); Glucose 95 mg/dL (70-105); Osmolality,Calculated 256 (280-300); Potassium 4.1 mEq/L (3.5-5.1); Sodium 123 mEq/L (136-145); eGFR For African Americans > 60 (> 60); eGFR For Non-African Americans > 60 (> 60)
[2018-01-22 06:27] VITALS: BP 131/84
[2018-01-22] MEDS: Budesonide/Formoterol 160/4.5 MDI IH SCH (07:21)
--- NOTE | 2018-01-22 07:22 | Discharge Summary ---
- NOTES TO OUTPATIENT PROVIDER Notes to Outpatient Provider: Follow up with cardiology and nephrology Orders not resulted at time of discharge: Pending orders 01/23/18 04:00 Basic Metabolic Panel AM 0400 CBC [Complete Blood Count] [HEME] AM 0400 01/24/18 04:00 Basic Metabolic Panel AM 0400 CBC [Complete Blood Count] [HEME] AM 0400 01/25/18 04:00 Basic Metabolic Panel AM 0400 CBC [Complete Blood Count] [HEME] AM 0400 01/26/18 04:00 Basic Metabolic Panel AM 0400 CBC [Complete Blood Count] [HEME] AM 0400 01/27/18 04:00 Basic Metabolic Panel AM 0400 CBC [Complete Blood Count] [HEME] AM 0400 Date of Encounter: 01/22/18 Time of Encounter: 07:15 - Discharge Diagnosis (1) Diastolic CHF Priority: Primary Status: Acute Assessment and Plan: Acute diastolic CHF. continue lasix. Echo showed EF 55% with diastolic dysfunction. Improving Comments: 67 year old male with history of COPD on about 4-6 L, coronary artery disease, GERD, hyperlipidemia, hypertension, malignancy, myocardial infarction, thyroid disease who presents to ED complains of chest congestion. He has a chronic cough but nothing above baseline. He has noticed that his legs are more swollen has been shortened breath as well. He was assessed with acute worsening of diastolic CHF and started on diuresis with lasix IV BID. His symptoms improved and he was discharged with lasix. His home med of HCTZ was discontinued on discharge. He was alos noted to be hyponatremic which appears to be chronic. renal was consulted who will follow up with him outpatient. They discharged him on sodium tablets. His metobolic workup for hyponatremic incluiding TSh, cortisol came back WNL. Qualifiers: Heart failure chronicity: acute Qualified Code(s): I50.31 - Acute diastolic (congestive) heart failure (2) Hyponatremia Priority: Secondary Status: Chronic (3) Edema Priority: Secondary Status: Acute Qualifiers: Edema type: unspecified Qualified Code(s): R60.9 - Edema, unspecified (4) CAD (coronary artery disease) Priority: Secondary Status: Chronic Qualifiers: Coronary Disease-Associated Artery/Lesion type: bypass graft [place] vs. transplanted heart: [place] heart Associated angina: without angina Qualified Code(s): I25.810 - Atherosclerosis of coronary artery bypass graft(s) without angina pectoris (5) COPD (chronic obstructive pulmonary disease) Priority: Secondary Status: Chronic Qualifiers: COPD type: unspecified COPD Qualified Code(s): J44.9 - Chronic obstructive pulmonary disease, unspecified (6) HTN (hypertension) Priority: Secondary Status: Chronic Qualifiers: Hypertension type: essential hypertension Qualified Code(s): I10 - Essential (primary) hypertension (7) DVT prophylaxis Priority: Secondary Status: Acute (8) Chronic respiratory failure Priority: Secondary Status: Chronic Qualifiers: Respiratory failure complication: hypoxia Qualified Code(s): J96.11 - Chronic respiratory failure with hypoxia Hospital course: Mr. Nugent is a 67 year old male - Time Spent with Patient Total time spent providing and/or coordinating discharge services: - Discharge Medications Prescriptions: Furosemide [Lasix] 40 mg PO BID #60 tab GuaiFENesin ER [Mucinex] 600 mg PO BID #60 tbbp.12hr Sodium Chloride [Sodium Chloride Tab] 1 gm PO BID #60 tablet Home Medications: Albuterol Sulfate [Proventil Hfa] 1 puff IH Q4HR PRN 03/08/16 [History] Budesonide/Formoterol 160/4.5 [Symbicort 160/4.5] 2 puff IH QAM 03/08/16 [ History] Carvedilol [Coreg] 3.125 mg PO BID 03/08/16 [History] Multivitamin [One Daily Essential] 1 tab PO DAILY 03/08/16 [History] Nitroglycerin [Nitrostat] 0.4 mg SL Q5M PRN 03/08/16 [History] Omeprazole [PriLOSEC] 40 mg PO DAILY 03/08/16 [History] Simvastatin [Zocor] 10 mg PO HS 03/08/16 [History] Amlodipine Besylate 10 mg PO DAILY 01/19/18 [History] Clopidogrel [Plavix] 75 mg PO DAILY 01/19/18 [History] Finasteride [Proscar] 5 mg PO DAILY 01/19/18 [History] Aspirin [Lo-Dose Aspirin EC] 81 mg PO DAILY 01/20/18 [History] Levothyroxine [Synthroid] 112 mcg PO 0630 01/20/18 [History] Loratadine [Claritin] 10 mg PO DAILY 01/20/18 [History] Tamsulosin [Flomax] 0.4 mg PO DAILY 01/20/18 [History] Furosemide [Lasix] 40 mg PO BID #60 tab 01/22/18 [Rx] GuaiFENesin ER [Mucinex] 600 mg PO BID #60 tbbp.12hr 01/22/18 [Rx] Sodium Chloride [Sodium Chloride Tab] 1 gm PO BID #60 tablet 01/22/18 [Rx] Allergies/Adverse Reactions: 3 Allergy/AdvReac Type Severity Reaction Status Date / Time Penicillins Allergy unknown Verified 01/20/18 12:31 Date of admission: 01/19/18 21:30 Primary care physician: Renee Wheeler MD Consults: 01/21/18 08:29 Consult to Nephrology [CONS] Routine Consulting Provider: [facility] Reason for Consult: acute on chronic hyponatremia Call Completed: Yes - Constitutional Vitals: Temp Pulse Resp BP Pulse Ox 98.1 F 77 14 131/84 89 01/22/18 06:24 01/22/18 06:24 01/22/18 06:24 01/22/18 06:24 01/22/18 06:24 General appearance: Present: A&O X 3, pleasant, no acute distress - Head Head exam: Present: atraumatic, normocephalic - Eye Eye exam: Present: PERRL, conjuntiva pink, sclera anicteric Pupils: Present: PERRL - Neck Neck exam general surgery: Present: supple, trachea midline. Absent: lymphadenopathy - Respiratory Respiratory exam: Present: CTAB. Absent: accessory muscle use, rales, rhonchi, wheezes - Cardiovascular Cardiovascular exam: Present: RRR, +S1, +S2. Absent: diastolic murmur, gallop, rubs, systolic murmur - GI/Abdominal GI/Abdominal exam: Present: normal bowel sounds, soft, no peritoneal signs. Absent: distended, tenderness - Extremities Exam Extremities exam: Present: warm, radial pulses palpable and symmetrical. Absent : calf tenderness, cyanotic, pedal edema - Neurological Exam Neurological exam: Present: CN II-XII intact, oriented X3, no focal deficits. Absent: pronater drift, facial droop, speech deficit - Skin Skin exam: Present: dry, intact - Patient Status Disposition: Home, Self-Care Condition: Fair - Discharge Instructions Follow Up With: Bandar Dacosta MD [Partnered Physician] - 02/20/18 11:40 am (Please follow up as schedule...) Gerardo Casarez DO [Partnered Physician] - 02/12/18 11:30 am (Please follow up as schedule..) Renee Wheeler MD [Primary Care Provider] - 01/23/18 2:00 pm (Please follow up as schedule...)
[2018-01-22] MEDS: Aspirin Enteric Coated 81 MG Tablet PO SCH (09:07)
[2018-01-22] MEDS: Multivit/Ca/Min/Fe/FA 1 TAB TABLET PO SCH (09:07)
[2018-01-22] MEDS: amLODIPine 5 MG TABLET PO SCH (09:07)
[2018-01-22] MEDS: Finasteride 5 MG TABLET PO SCH (09:08)
--- NOTE | 2018-01-22 10:59 | Nephrology Progress Note ---
Date of Encounter: 01/22/18 Time of Encounter: 10:57 - Assessment and Plan (1) Hyponatremia Current Visit: Yes Status: Chronic Sodium chloride tablets ordered. BMP in 1 week. F/U with [facility] in 2-4 weeks. (2) Edema Current Visit: Yes Status: Acute Resolved. Qualifiers: Edema type: unspecified Qualified Code(s): R60.9 - Edema, unspecified (3) HTN (hypertension) Current Visit: Yes Status: Chronic [id number] Qualifiers: Hypertension type: essential hypertension Qualified Code(s): I10 - Essential (primary) hypertension Subjective Principal diagnosis: edema,chest congestion Interval history: Pt seen and examined. Objective - Vital Signs Vital signs: Vital Signs Temp Pulse Resp BP Pulse Ox 01/22/18 07:22 18 91 01/22/18 06:24 98.1 F 77 14 131/84 89 01/22/18 05:13 97.4 F L 88 14 121/75 96 01/22/18 00:31 98.2 F 84 15 134/83 96 01/21/18 19:54 18 95 01/21/18 19:40 97.5 F L 71 16 153/84 94 01/21/18 16:23 97.6 F 64 16 158/87 95 01/21/18 11:51 97.4 F L 70 16 150/91 95 Intake and Output 01/21/18 01/22/18 01/22/18 23:59 07:59 15:59 Intake Total 550 / 550 100 / 100 Output Total 600 / 600 800 / 800 0 / 0 Balance -600 / -600 -250 / -250 100 / 100 Intake: Oral 550 / 550 100 / 100 Output: Urine 600 / 600 800 / 800 0 / 0 Other: Weight 89.993 kg Patient Weight 01/22/18 23:59 Weight 89.993 kg - General Appearance General appearance: Present: well-developed, well-nourished EENT: Present: ATNC, hearing intact, vision intact Neck: Present: supple Respiratory: Present: clear Cardiology: Present: no edema, regular rate, regular rhythm Gastrointestinal: Present: normoactive bowel sounds, no tenderness, no guarding Integumentary: Present: no rash, warm and dry Neurologic: Present: alert and oriented x3 Psychiatric: Present: mood/affect appropriate, cooperative - Lab 01/22/18 05:24 01/22/18 05:24 Most recent lab results Calcium 9.2 mg/dL (8.6-10.3) 01/22/18 05:24 Magnesium 1.6 mg/dL (1.6-2.6) 01/21/18 06:33 Urine Sodium 79.8 mEq/L 01/20/18 21:25 Consult Discharge Plan - Plan Referrals: Bandar Dacosta MD [Partnered Physician] - 02/20/18 11:40 am (Please follow up as schedule...) Gerardo Casarez DO [Partnered Physician] - 02/12/18 11:30 am (Please follow up as schedule..) Renee Wheeler MD [Primary Care Provider] - 01/23/18 2:00 pm (Please follow up as schedule...) Prescriptions: Furosemide [Lasix] 40 mg PO BID #60 tab GuaiFENesin ER [Mucinex] 600 mg PO BID #60 tbbp.12hr
== END 2018-01-22 11:38 | disposition home or self-care (01) | DRG 291 ==
LOC: EMEROO 16:09 → 2ANU 16:09
PROVIDERS: ADMIT Internal Medicine; ATTEND Internal Medicine

== ENCOUNTER 2020-06-21 00:57 | Inpatient (IN) ==
[2020-06-21 01:46] LABS: Basophils % 0.2 %; Eosinophils # 0.2 K/mcL (0.0-0.6); Eosinophils % 1.4 %; Hematocrit 38.5 % (37.5-50.1); Hemoglobin 11.9 g/dL (12.9-16.9); INR 1.2; Immature Granulocytes % 0.2 % (0-4); Lymphocytes # 0.4 K/mcL (0.6-4.6); Lymphocytes % 2.4 %; Mean Corpuscular HGB Conc 30.9 g/dL (31.6-35.5); Mean Corpuscular Hemoglobin 27.5 pg (28.0-33.3); Mean Corpuscular Volume 89.1 fL (83.0-100.0); Mean Platelet Volume 8.7 fL (9.4-12.4); Monocytes # 0.8 K/mcL (0.0-1.3); Monocytes % 4.5 %; Neutrophils # 15.5 K/mcL (1.6-8.9); Platelet Count 263 K/mcL (140-400); Prothrombin Time 13.9 Seconds (9.4-12.1); Red Blood Count 4.32 M/mcL (4.19-5.50); Red Cell Distribution Width 12.8 % (11.5-14.5); Segmented Neutrophils % 91.3 %
[2020-06-21 01:59] LABS: Alanine Aminotransferase 11 Units/L (7-52); Albumin 4.3 g/dL (3.5-5.7); Albumin/Globulin Ratio 1.5 (1.1-2.2); Alkaline Phosphatase 75 Units/L (34-104); Aspartate Amino Transferase 17 Units/L (13-39); BUN/Creatinine Ratio 17 (6-26); Bilirubin,Direct 0.1 mg/dL (0.0-0.2); Bilirubin,Indirect 0.3 mg/dL (0.0-1.0); Bilirubin,Total 0.4 mg/dL (0.3-1.0); Blood Urea Nitrogen 9 mg/dL (8-23); Calcium 9.3 mg/dL (8.6-10.3); Carbon Dioxide 37 mEq/L (23-29); Chloride 90 mEq/L (98-107); Globulin 2.8 g/dL (2.4-3.5); Glucose 130 mg/dL (70-105); Magnesium 1.6 mg/dL (1.6-2.6); Osmolality,Calculated 274 (280-300); Potassium 4.4 mEq/L (3.5-5.1); Sodium 132 mEq/L (136-145); Total Protein 7.1 g/dL (6.4-8.9); Troponin I < 0.03 ng/mL (< 0.04); eGFR For African Americans > 60 (> 60); eGFR For Non-African Americans > 60 (> 60)
[2020-06-21] MEDS ORDERED: Isovue-370 500 ML BOTTLE IVP ONE (02:05)
[2020-06-21 02:38] LABS: Bilirubin,Urine Negative (Negative); Blood,Urine Negative (Negative); Clarity,Urine Clear (Clear); Color,Urine Colorless (Yellow); Glucose,Urine (UA) Normal (Normal); Ketones,Urine Negative (Negative); Leukocyte Esterase,Urine Negative (Negative); Nitrite,Urine Negative (Negative); Protein,Urine Trace mg/dL (Neg-Trace); Specific Gravity,Urine 1.014 (1.010-1.025); Urobilinogen,Urine Normal (Normal)
[2020-06-21] MEDS ORDERED: Azithromycin 500 MG in 0.9 % Sodium Chloride 250 ML IVPB ONE (02:52)
[2020-06-21] MEDS ORDERED: cefTRIAXone 1,000 MG in Water for inj. (sterile) 10 ML IVP ONE (02:52)
[2020-06-21] MEDS ORDERED: Naloxone 0.4 MG/ML INJ IVP PRN (03:05)
[2020-06-21] MEDS ORDERED: Acetaminophen 325 MG TABLET PO PRN (03:05)
[2020-06-21] MEDS ORDERED: Ondansetron 4 MG/2 ML VIAL IVP PRN (03:05)
[2020-06-21] MEDS ORDERED: *HR* Labetalol 20 MG/4 ML SYRINGE IVP PRN (03:58)
[2020-06-21] MEDS: methylPREDNISolone 125 MG/2 ML VIAL IVP SCH ×2 (05:50→18:17)
[2020-06-21 06:06] LABS: Basophils % 0.2 %; Eosinophils % 0.1 %; Hematocrit 37.4 % (37.5-50.1); Hemoglobin 11.1 g/dL (12.9-16.9); Immature Granulocytes % 0.6 % (0-4); Lymphocytes % 1.1 %; Mean Corpuscular HGB Conc 29.7 g/dL (31.6-35.5); Mean Corpuscular Hemoglobin 26.5 pg (28.0-33.3); Mean Corpuscular Volume 89.3 fL (83.0-100.0); Mean Platelet Volume 8.8 fL (9.4-12.4); Monocytes % 4.4 %; Neutrophils # 21.1 K/mcL (1.6-8.9); Platelet Count 208 K/mcL (140-400); Red Blood Count 4.19 M/mcL (4.19-5.50); Red Cell Distribution Width 12.7 % (11.5-14.5); Segmented Neutrophils % 93.6 %; White Blood Count 22.5 K/mcL (4.3-11.1)
[2020-06-21 06:11] LABS: Basophils # 0.1 K/mcL (0.0-0.2); Lymphocytes # 0.3 K/mcL (0.6-4.6)
[2020-06-21 06:27] LABS: Platelet Estimate Normal (Normal)
[2020-06-21] MEDS ORDERED: amLODIPine 5 MG TABLET PO SCH (09:00)
[2020-06-21] MEDS: Budesonide/Formoterol 160/4.5 1 PUFF INH IH SCH ×2 (09:46→22:24)
[2020-06-21] MEDS: Ipratropium/Albuterol Neb 3 ML IH SCH ×3 (09:46→22:23)
[2020-06-21] MEDS ORDERED: *HR* EPINEPHrine 1 MG/10 ML SYRINGE INTRATRACH PRN (09:53)
[2020-06-21 10:19] LABS: Adenovirus Not Detected (Not Detect); Coronavirus 229E Not Detected (Not Detect); Coronavirus HKU1 Not Detected (Not Detect); Coronavirus NL63 Not Detected (Not Detect); Coronavirus OC43 Not Detected (Not Detect); Human Metapneumovirus Not Detected (Not Detect); Human Rhinovirus/Enterovirus Not Detected (Not Detect)
[2020-06-21 10:20] LABS: Bordetella Pertussis Not Detected (Not Detect); Chlamydophila pneumoniae Not Detected (Not Detect); Influenza A Subtype 2009 H1 Not Detected (Not Detect); Influenza B Not Detected (Not Detect); Mycoplasma pneumoniae Not Detected (Not Detect); Parainfluenza Virus 1 Not Detected (Not Detect); Parainfluenza Virus 2 Not Detected (Not Detect); Parainfluenza Virus 3 Not Detected (Not Detect); Parainfluenza Virus 4 Not Detected (Not Detect); Respiratory Syncytial Virus Not Detected (Not Detect)
[2020-06-21] MEDS ORDERED: Lidocaine -MPF 4% 5 ML AMPUL TP ONE (11:22)
[2020-06-21] MEDS ORDERED: *HR* Labetalol 20 MG/4 ML SYRINGE IVP ONE (11:22)
[2020-06-21] MEDS ORDERED: Lidocaine -MPF 2% 5 ML VIAL SQ ONE (11:22)
[2020-06-21] MEDS ORDERED: EPHEDrine 50 MG/ML VIAL IVP ONE (11:22)
[2020-06-21] MEDS ORDERED: *HR* Propofol 200 MG/20 ML VIAL IVP ONE (11:22)
[2020-06-21] MEDS ORDERED: *HR* Phenylephrine 10 MG/ML VIAL IVC ONE (11:22)
[2020-06-21] MEDS ORDERED: *HR* Succinylcholine 200 MG/10 ML VIAL IVP ONE (11:22)
[2020-06-21] MEDS ORDERED: Ondansetron 4 MG/2 ML VIAL IVP ONE (11:22)
[2020-06-21 14:06] LABS: Hematocrit 39.7 % (37.5-50.1); Hemoglobin 12.3 g/dL (12.9-16.9); Mean Corpuscular Hemoglobin 27.8 pg (28.0-33.3); Mean Corpuscular Volume 89.6 fL (83.0-100.0); Mean Platelet Volume 9.1 fL (9.4-12.4); Platelet Count 206 K/mcL (140-400); Red Blood Count 4.43 M/mcL (4.19-5.50); Red Cell Distribution Width 12.5 % (11.5-14.5); White Blood Count 23.9 K/mcL (4.3-11.1)
[2020-06-21 16:51] LABS: Appearance of Body Fluid Cloudy (Clear); Volume of Body Fluid 10 mL
[2020-06-21 18:29] LABS: Hematocrit 38.5 % (37.5-50.1); Hemoglobin 11.6 g/dL (12.9-16.9); Mean Corpuscular HGB Conc 30.1 g/dL (31.6-35.5); Mean Corpuscular Volume 89.5 fL (83.0-100.0); Mean Platelet Volume 8.9 fL (9.4-12.4); Platelet Count 220 K/mcL (140-400); Red Cell Distribution Width 12.7 % (11.5-14.5); White Blood Count 19.4 K/mcL (4.3-11.1)
[2020-06-21] MEDS ORDERED: Menthol 9.1 MG LOZENGE PO PRN (21:02)
[2020-06-22] MEDS: cefTRIAXone 2,000 MG in Water for inj. (sterile) 20 ML IVP SCH (02:41)
[2020-06-22] MEDS ORDERED: Azithromycin 500 MG in 0.9 % Sodium Chloride 250 ML IVPB SCH (04:00)
[2020-06-22] MEDS: Ipratropium/Albuterol Neb 3 ML IH SCH ×2 (04:35→10:42)
[2020-06-22 04:50] LABS: Basophils % 0.1 %; Hemoglobin 10.9 g/dL (12.9-16.9); Immature Granulocytes % 0.5 % (0-4); Lymphocytes # 0.3 K/mcL (0.6-4.6); Lymphocytes % 1.8 %; Mean Corpuscular HGB Conc 30.3 g/dL (31.6-35.5); Mean Corpuscular Volume 89.3 fL (83.0-100.0); Mean Platelet Volume 8.9 fL (9.4-12.4); Monocytes # 0.6 K/mcL (0.0-1.3); Monocytes % 3.3 %; Neutrophils # 15.9 K/mcL (1.6-8.9); Platelet Count 241 K/mcL (140-400); Red Blood Count 4.03 M/mcL (4.19-5.50); Red Cell Distribution Width 12.7 % (11.5-14.5); Segmented Neutrophils % 94.3 %; White Blood Count 16.8 K/mcL (4.3-11.1)
[2020-06-22 05:04] LABS: BUN/Creatinine Ratio 22 (6-26); Blood Urea Nitrogen 11 mg/dL (8-23); Calcium 9.1 mg/dL (8.6-10.3); Carbon Dioxide 38 mEq/L (23-29); Chloride 88 mEq/L (98-107); Glucose 161 mg/dL (70-105); Osmolality,Calculated 277 (280-300); Potassium 4.3 mEq/L (3.5-5.1); Sodium 132 mEq/L (136-145); eGFR For African Americans > 60 (> 60); eGFR For Non-African Americans > 60 (> 60)
[2020-06-22] MEDS ORDERED: *HR* Metoprolol 5 MG/5 ML VIAL IVP PRN (05:23)
[2020-06-22] MEDS: methylPREDNISolone 125 MG/2 ML VIAL IVP SCH (05:39)
[2020-06-22] MEDS ORDERED: *HR* Metoprolol 5 MG/5 ML VIAL IVP ONE (06:24)
[2020-06-22 06:38] LABS: Magnesium 1.7 mg/dL (1.6-2.6)
[2020-06-22] MEDS ORDERED: Metoprolol XL (24 HR) Succ 25 MG TAB.ER.24H PO SCH (09:00)
[2020-06-22] MEDS: Budesonide/Formoterol 160/4.5 1 PUFF INH IH SCH ×2 (10:42→19:46)
[2020-06-22] MEDS ORDERED: Furosemide 20 MG/2 ML VIAL IVP ONE (11:00)
[2020-06-22] MEDS ORDERED: Metoprolol XL (24 HR) Succ 25 MG TAB.ER.24H PO ONE ×2 (11:45→20:00)
[2020-06-22] MEDS: DilTIAZem 50 MG/50 ML IV.SOLN IVC SCH ×3 (11:50→19:45)
[2020-06-22] MEDS: Tiotropium 18 MCG inhalation IH SCH (16:06)
[2020-06-22] MEDS ORDERED: Ipratropium/Albuterol Neb 3 ML IH PRN (17:22)
[2020-06-22] MEDS ORDERED: Budesonide/Formoterol 160/4.5 1 PUFF INH IH SCH (21:00)
[2020-06-23] MEDS: cefTRIAXone 2,000 MG in Water for inj. (sterile) 20 ML IVP SCH (03:14)
[2020-06-23 04:12] LABS: Basophils % 0.1 %; Hematocrit 31.1 % (37.5-50.1); Hemoglobin 9.8 g/dL (12.9-16.9); Immature Granulocytes % 0.6 % (0-4); Lymphocytes # 0.5 K/mcL (0.6-4.6); Lymphocytes % 2.5 %; Mean Corpuscular HGB Conc 31.5 g/dL (31.6-35.5); Mean Corpuscular Hemoglobin 27.2 pg (28.0-33.3); Mean Corpuscular Volume 86.4 fL (83.0-100.0); Monocytes # 1.1 K/mcL (0.0-1.3); Monocytes % 5.4 %; Neutrophils # 17.8 K/mcL (1.6-8.9); Nucleated Red Blood Cells 0.1 /100 WBC (0); Platelet Count 232 K/mcL (140-400); Red Cell Distribution Width 12.9 % (11.5-14.5); Segmented Neutrophils % 91.4 %; White Blood Count 19.5 K/mcL (4.3-11.1)
[2020-06-23 04:31] LABS: BUN/Creatinine Ratio 37 (6-26); Blood Urea Nitrogen 18 mg/dL (8-23); Carbon Dioxide 39 mEq/L (23-29); Chloride 89 mEq/L (98-107); Glucose 126 mg/dL (70-105); Osmolality,Calculated 277 (280-300); Potassium 4.4 mEq/L (3.5-5.1); Sodium 132 mEq/L (136-145); eGFR For African Americans > 60 (> 60); eGFR For Non-African Americans > 60 (> 60)
[2020-06-23] MEDS ORDERED: Furosemide 20 MG/2 ML VIAL IVP ONE ×2 (07:40→08:35)
[2020-06-23] MEDS ORDERED: Ringers Solution, Lactated 0 ML ONE (08:15)
[2020-06-23] MEDS: Azithromycin 250 MG TABLET PO SCH (08:34)
[2020-06-23] MEDS: predniSONE 20 MG TABLET PO SCH (08:34)
[2020-06-23] MEDS ORDERED: Metoprolol XL (24 HR) Succ 50 MG TAB.ER.24H PO SCH (09:00)
[2020-06-23] MEDS: Tiotropium 18 MCG inhalation IH SCH (11:36)
[2020-06-23] MEDS: Budesonide/Formoterol 160/4.5 1 PUFF INH IH SCH ×2 (11:36→20:12)
[2020-06-24 00:59] LABS: Hematocrit 33.8 % (37.5-50.1); Hemoglobin 10.4 g/dL (12.9-16.9); Mean Corpuscular HGB Conc 30.8 g/dL (31.6-35.5); Mean Corpuscular Hemoglobin 27.2 pg (28.0-33.3); Mean Corpuscular Volume 88.5 fL (83.0-100.0); Platelet Count 276 K/mcL (140-400); Red Blood Count 3.82 M/mcL (4.19-5.50); Red Cell Distribution Width 12.7 % (11.5-14.5); White Blood Count 16.7 K/mcL (4.3-11.1)
[2020-06-24 01:29] LABS: BUN/Creatinine Ratio 44 (6-26); Blood Urea Nitrogen 19 mg/dL (8-23); Carbon Dioxide 40 mEq/L (23-29); Chloride 88 mEq/L (98-107); Glucose 112 mg/dL (70-105); Osmolality,Calculated 277 (280-300); Potassium 4.1 mEq/L (3.5-5.1); Sodium 132 mEq/L (136-145); eGFR For African Americans > 60 (> 60); eGFR For Non-African Americans > 60 (> 60)
[2020-06-24 03:36] LABS: Influenza A PCR Body Fluid NOT DETECTED; Influenza B PCR Body Fluid NOT DETECTED; RVP Body Fluid Source BAL
[2020-06-24] MEDS: cefTRIAXone 2,000 MG in Water for inj. (sterile) 20 ML IVP SCH (04:10)
[2020-06-24 07:24] VITALS: BP 153/90
[2020-06-24] MEDS: Tiotropium 18 MCG inhalation IH SCH (08:10)
[2020-06-24] MEDS: Budesonide/Formoterol 160/4.5 1 PUFF INH IH SCH (08:10)
[2020-06-24] MEDS: Azithromycin 250 MG TABLET PO SCH (08:32)
[2020-06-24] MEDS: predniSONE 20 MG TABLET PO SCH (08:32)
[2020-06-24] MEDS ORDERED: Metoprolol XL (24 HR) Succ 25 MG TAB.ER.24H PO SCH (09:00)
[2020-06-24] MEDS ORDERED: *HR* Dabigatran 150 MG CAPSULE PO SCH (09:00)
[2020-06-24 10:01] LABS: RSV PCR Body Fluid NOT DETECTED
[2020-06-26 09:49] LABS: HSV Source BAL
== END 2020-06-24 11:23 | disposition home or self-care (01) | DRG 871 ==
LOC: 3ANU 00:57 → EMEROOARM 00:57 → 3ANU 04:45 → ICNU 07:00 → 2NNU 06-23 16:20
PROVIDERS: ADMIT Internal Medicine; ATTEND Internal Medicine

== ENCOUNTER 2020-07-06 14:57 | Observation (INO) ==
[2020-07-06 15:33] LABS: Basophils % 0.2 %; Eosinophils # 0.2 K/mcL (0.0-0.6); Eosinophils % 2.2 %; Hemoglobin 11.6 g/dL (12.9-16.9); Immature Granulocytes % 0.4 % (0-4); Lymphocytes # 0.8 K/mcL (0.6-4.6); Lymphocytes % 7.6 %; Mean Corpuscular HGB Conc 30.5 g/dL (31.6-35.5); Mean Corpuscular Hemoglobin 27.2 pg (28.0-33.3); Mean Corpuscular Volume 89.2 fL (83.0-100.0); Mean Platelet Volume 8.4 fL (9.4-12.4); Monocytes # 0.9 K/mcL (0.0-1.3); Monocytes % 7.7 %; Platelet Count 281 K/mcL (140-400); Red Blood Count 4.26 M/mcL (4.19-5.50); Red Cell Distribution Width 13.1 % (11.5-14.5); Segmented Neutrophils % 81.9 %
[2020-07-06 15:45] LABS: Alanine Aminotransferase 14 Units/L (7-52); Albumin/Globulin Ratio 1.5 (1.1-2.2); Alkaline Phosphatase 67 Units/L (34-104); Aspartate Amino Transferase 13 Units/L (13-39); BUN/Creatinine Ratio 15 (6-26); Bilirubin,Total 0.3 mg/dL (0.3-1.0); Blood Urea Nitrogen 7 mg/dL (8-23); Carbon Dioxide 37 mEq/L (23-29); Chloride 92 mEq/L (98-107); Globulin 2.6 g/dL (2.4-3.5); Glucose 102 mg/dL (70-105); Osmolality,Calculated 268 (280-300); Potassium 4.2 mEq/L (3.5-5.1); Sodium 130 mEq/L (136-145); Total Protein 6.6 g/dL (6.4-8.9); eGFR For African Americans > 60 (> 60); eGFR For Non-African Americans > 60 (> 60)
[2020-07-06] MEDS ORDERED: Ondansetron 4 MG/2 ML VIAL IVP PRN (17:44)
[2020-07-06] MEDS ORDERED: Ketorolac 15 MG/ML VIAL IVP PRN (17:44)
[2020-07-06] MEDS ORDERED: Naloxone 0.4 MG/ML INJ IVP PRN (17:44)
[2020-07-06] MEDS ORDERED: Ipratropium/Albuterol Neb 3 ML IH PRN (17:51)
[2020-07-06] MEDS ORDERED: *HR* Heparin 5,000 UNIT/ML VIAL SQ ONE (18:56)
[2020-07-06] MEDS ORDERED: Ringers Solution, Lactated 1,000 ML IVC SCH (19:00)
[2020-07-06] MEDS: Metoprolol XL (24 HR) Succ 25 MG TAB.ER.24H PO SCH (20:31)
[2020-07-06] MEDS: Budesonide/Formoterol 160/4.5 1 PUFF INH IH SCH (21:38)
[2020-07-07] MEDS ORDERED: Acetaminophen IV 1,000 MG/100 ML INFUS..BTL IVPB ONE (07:05)
[2020-07-07] MEDS ORDERED: Famotidine 20 MG/2 ML VIAL IVP ONE (07:05)
[2020-07-07] MEDS ORDERED: *HR* FentaNYL (PF) 100 MCG/2 ML VIAL ONE (07:15)
[2020-07-07] MEDS ORDERED: *HR* Propofol 200 MG/20 ML VIAL IVP ONE (07:15)
[2020-07-07] MEDS ORDERED: Lidocaine HCL 4 ML Topical Solution (Laryng-O-Jet Kit Sterile Pak) TP ONE (07:16)
[2020-07-07] MEDS ORDERED: Dexamethasone 4 MG/ML VIAL ONE (07:16)
[2020-07-07] MEDS ORDERED: *HR* Succinylcholine 200 MG/10 ML VIAL IVP ONE (07:16)
[2020-07-07] MEDS ORDERED: *HR* Rocuronium Bromide 50 MG/5 ML VIAL ONE (07:16)
[2020-07-07] MEDS ORDERED: Lidocaine -MPF 2% 2 ML VIAL ONE ×2 (07:16→09:05)
[2020-07-07] MEDS ORDERED: Ondansetron 4 MG/2 ML VIAL ONE (07:16)
[2020-07-07 07:22] LABS: INR 1.1; Prothrombin Time 13.1 Seconds (9.4-12.1)
[2020-07-07] MEDS ORDERED: *HR* HYDROmorphone PF 0.5 MG/0.5 ML SYRINGE IVP PRN (07:27)
[2020-07-07] MEDS ORDERED: Ondansetron 4 MG/2 ML VIAL IVP PRN ×2 (07:27→10:50)
[2020-07-07] MEDS ORDERED: *HR* OxyCODONE Immed Rel 5 MG TABLET PO PRN (07:27)
[2020-07-07] MEDS: Metoprolol XL (24 HR) Succ 25 MG TAB.ER.24H PO SCH (07:35)
[2020-07-07 07:36] LABS: Basophils % 0.2 %; Eosinophils # 0.2 K/mcL (0.0-0.6); Eosinophils % 2.5 %; Hematocrit 39.6 % (37.5-50.1); Hemoglobin 11.7 g/dL (12.9-16.9); Immature Granulocytes % 0.3 % (0-4); Lymphocytes # 0.7 K/mcL (0.6-4.6); Lymphocytes % 7.7 %; Mean Corpuscular HGB Conc 29.5 g/dL (31.6-35.5); Mean Corpuscular Hemoglobin 26.9 pg (28.0-33.3); Mean Platelet Volume 8.6 fL (9.4-12.4); Monocytes # 0.7 K/mcL (0.0-1.3); Monocytes % 7.2 %; Neutrophils # 7.6 K/mcL (1.6-8.9); Platelet Count 293 K/mcL (140-400); Red Blood Count 4.35 M/mcL (4.19-5.50); Red Cell Distribution Width 12.9 % (11.5-14.5); Segmented Neutrophils % 82.1 %; White Blood Count 9.3 K/mcL (4.3-11.1)
[2020-07-07 07:38] LABS: BUN/Creatinine Ratio 13 (6-26); Blood Urea Nitrogen 6 mg/dL (8-23); Carbon Dioxide 38 mEq/L (23-29); Chloride 91 mEq/L (98-107); Glucose 84 mg/dL (70-105); Osmolality,Calculated 273 (280-300); Potassium 4.1 mEq/L (3.5-5.1); Sodium 133 mEq/L (136-145); eGFR For African Americans > 60 (> 60); eGFR For Non-African Americans > 60 (> 60)
[2020-07-07] MEDS ORDERED: Famotidine 20 MG/2 ML VIAL ONE (07:55)
[2020-07-07] MEDS ORDERED: Acetaminophen IV 1,000 MG/100 ML INFUS..BTL ONE (07:55)
[2020-07-07] MEDS ORDERED: Clindamycin 600 MG/50 ML 600 MG/50 ML IV.SOLN IVPB ONE (08:09)
[2020-07-07] MEDS ORDERED: EPHEDrine 50 MG/ML VIAL ONE (08:20)
[2020-07-07] MEDS ORDERED: Cyanocobalamin (B-12) 1,000 MCG TABLET PO SCH (09:00)
[2020-07-07] MEDS ORDERED: *HR* HYDROMORPHONE 2 MG/ML VIAL ONE (09:16)
[2020-07-07] MEDS ORDERED: *HR* Labetalol 20 MG/4 ML SYRINGE IVP PRN (09:58)
[2020-07-07] MEDS ORDERED: *HR* Labetalol 20 MG/4 ML SYRINGE IVP ONE (10:00)
[2020-07-07] MEDS: Budesonide/Formoterol 160/4.5 1 PUFF INH IH SCH (10:32)
[2020-07-07] MEDS ORDERED: Naloxone 0.4 MG/ML INJ IVP PRN (10:50)
[2020-07-07] MEDS ORDERED: Preparation H Ointment 57 GM TUBE RC PRN (10:50)
[2020-07-07] MEDS ORDERED: *HR* OxyCODONE/APAP 5/325 TABLET PO PRN (10:50)
[2020-07-07] MEDS ORDERED: Ipratropium/Albuterol Neb 3 ML IH PRN ×2 (10:50→17:00)
[2020-07-07] MEDS ORDERED: NON-FORMULARY MEDICATION 1 EACH EACH (Ipratropium/Albuterol Sulfate 1 PUFF) IH PRN (10:50)
[2020-07-07] MEDS: Ketorolac 15 MG/ML VIAL IVP SCH ×2 (12:42→17:51)
[2020-07-07] MEDS ORDERED: 0.9 % Sodium Chloride 1,000 ML IVC ONE (13:53)
[2020-07-07 15:16] LABS: Basophils % 0.1 %; Eosinophils % 0.1 %; Hematocrit 32.7 % (37.5-50.1); Immature Granulocytes % 0.4 % (0-4); Lymphocytes % 1.7 %; Mean Corpuscular Volume 90.1 fL (83.0-100.0); Mean Platelet Volume 8.3 fL (9.4-12.4); Monocytes # 0.4 K/mcL (0.0-1.3); Monocytes % 2.5 %; Neutrophils # 13.8 K/mcL (1.6-8.9); Platelet Count 266 K/mcL (140-400); Red Blood Count 3.63 M/mcL (4.19-5.50); Red Cell Distribution Width 12.9 % (11.5-14.5); Segmented Neutrophils % 95.2 %
[2020-07-07 15:22] LABS: Hemoglobin 9.8 g/dL (12.9-16.9); Lymphocytes # 0.3 K/mcL (0.6-4.6); White Blood Count 14.5 K/mcL (4.3-11.1)
[2020-07-07 18:01] VITALS: BP 134/74
[2020-07-07] MEDS ORDERED: Metoprolol XL (24 HR) Succ 25 MG TAB.ER.24H PO SCH (21:00)
[2020-07-07] MEDS ORDERED: Budesonide/Formoterol 160/4.5 1 PUFF INH IH SCH (22:00)
[2020-07-08] MEDS ORDERED: Aspirin Enteric Coated 81 MG Tablet PO SCH (09:00)
[2020-07-08] MEDS ORDERED: *HR* Dabigatran 150 MG CAPSULE PO SCH (09:00)
[2020-07-08] MEDS ORDERED: Cyanocobalamin (B-12) 1,000 MCG TABLET PO SCH (09:00)
== END 2020-07-07 19:31 | disposition home or self-care (01) ==
LOC: EMEROOARM 14:57 → 3ANU 14:57
PROVIDERS: ADMIT Student in an Organized Health Care Education/Training Program; ATTEND Student in an Organized Health Care Education/Training Program

== ENCOUNTER 2020-10-04 16:05 | Inpatient (IN) ==
[2020-10-04] MEDS ORDERED: Isovue-370 500 ML BOTTLE IVP ONE (16:26)
[2020-10-04 16:59] LABS: INR 1.5
[2020-10-04 17:00] LABS: BUN/Creatinine Ratio 22 (6-26); Blood Urea Nitrogen 10 mg/dL (8-23); Calcium 9.1 mg/dL (8.6-10.3); Carbon Dioxide 37 mEq/L (23-29); Chloride 93 mEq/L (98-107); Glucose 104 mg/dL (70-105); Magnesium 1.7 mg/dL (1.6-2.6); Osmolality,Calculated 279 (280-300); Sodium 135 mEq/L (136-145); Troponin I < 0.03 ng/mL (< 0.04); eGFR For African Americans > 60 (> 60); eGFR For Non-African Americans > 60 (> 60)
[2020-10-04] MEDS ORDERED: *HR* Heparin 5,000 UNIT/ML VIAL IVP PRN (18:47)
[2020-10-04] MEDS ORDERED: *HR* Heparin 5,000 UNIT/ML VIAL IVP ONE (18:47)
[2020-10-04 19:17] LABS: Heparin anti-factor XA UFH < 0.04 IU/mL (0.30-0.70)
[2020-10-04 19:18] LABS: INR 1.4; Prothrombin Time 15.6 Seconds (9.4-12.1)
[2020-10-04 19:20] LABS: Hematocrit 32.7 % (37.5-50.1); Hemoglobin 9.8 g/dL (12.9-16.9); Mean Corpuscular Hemoglobin 26.5 pg (28.0-33.3); Mean Corpuscular Volume 88.4 fL (83.0-100.0); Mean Platelet Volume 9.1 fL (9.4-12.4); Platelet Count 198 K/mcL (140-400); Red Cell Distribution Width 13.4 % (11.5-14.5); White Blood Count 11.6 K/mcL (4.3-11.1)
[2020-10-04] MEDS ORDERED: Naloxone 0.4 MG/ML INJ IVP PRN (20:09)
[2020-10-04] MEDS ORDERED: Acetaminophen 325 MG TABLET PO PRN (20:09)
[2020-10-04] MEDS ORDERED: Ondansetron 4 MG/2 ML VIAL IVP PRN (20:09)
[2020-10-04] MEDS: Heparin 25,000UNIT/250ML 1/2NS 25,000 UNIT/250 ML IV.SOLN IVC SCH (20:11)
[2020-10-04] MEDS ORDERED: Azithromycin 500 MG in D5% in Water 250 ML IVPB SCH (22:00)
[2020-10-04] MEDS ORDERED: Ipratropium/Albuterol Neb 3 ML IH PRN (23:08)
[2020-10-04] MEDS: Metoprolol XL (24 HR) Succ 25 MG TAB.ER.24H PO SCH (23:44)
[2020-10-05 03:00] LABS: Basophils % 0.3 %; Eosinophils # 0.5 K/mcL (0.0-0.6); Eosinophils % 5.8 %; Hematocrit 34.1 % (37.5-50.1); Hemoglobin 10.1 g/dL (12.9-16.9); INR 1.3; Immature Granulocytes % 0.2 % (0-4); Lymphocytes # 0.8 K/mcL (0.6-4.6); Lymphocytes % 8.4 %; Mean Corpuscular HGB Conc 29.6 g/dL (31.6-35.5); Mean Corpuscular Volume 87.9 fL (83.0-100.0); Mean Platelet Volume 8.9 fL (9.4-12.4); Monocytes # 0.7 K/mcL (0.0-1.3); Monocytes % 7.4 %; Platelet Count 211 K/mcL (140-400); Prothrombin Time 15.2 Seconds (9.4-12.1); Red Blood Count 3.88 M/mcL (4.19-5.50); Red Cell Distribution Width 13.3 % (11.5-14.5); Segmented Neutrophils % 77.9 %
[2020-10-05 03:13] LABS: Alanine Aminotransferase 10 Units/L (7-52); Albumin 3.4 g/dL (3.5-5.7); Albumin/Globulin Ratio 1.1 (1.1-2.2); Alkaline Phosphatase 66 Units/L (34-104); Aspartate Amino Transferase 14 Units/L (13-39); BUN/Creatinine Ratio 19 (6-26); Bilirubin,Total 0.3 mg/dL (0.3-1.0); Blood Urea Nitrogen 7 mg/dL (8-23); Calcium 9.2 mg/dL (8.6-10.3); Carbon Dioxide 38 mEq/L (23-29); Chloride 93 mEq/L (98-107); Glucose 90 mg/dL (70-105); Magnesium 1.7 mg/dL (1.6-2.6); Osmolality,Calculated 282 (280-300); Phosphorous 3.3 mg/dL (2.7-4.5); Potassium 4.1 mEq/L (3.5-5.1); Sodium 137 mEq/L (136-145); Total Protein 6.4 g/dL (6.4-8.9); Troponin I < 0.03 ng/mL (< 0.04); eGFR For African Americans > 60 (> 60); eGFR For Non-African Americans > 60 (> 60)
[2020-10-05] MEDS: *HR* Heparin 5,000 UNIT/ML VIAL IVP PRN ×2 (05:38→22:19)
[2020-10-05] MEDS: Budesonide/Formoterol 160/4.5 1 PUFF INH IH SCH ×2 (07:54→20:14)
[2020-10-05] MEDS: Metoprolol XL (24 HR) Succ 25 MG TAB.ER.24H PO SCH ×2 (08:14→20:04)
[2020-10-05] MEDS: GuaiFENesin Liq 200 MG/10 ML UDC PO SCH ×4 (08:14→20:04)
[2020-10-05] MEDS ORDERED: cefTRIAXone 1,000 MG in Water for inj. (sterile) 10 ML IVP SCH (09:00)
[2020-10-05] MEDS: levoFLOXacin 750 MG TABLET PO SCH (13:12)
[2020-10-05] MEDS ORDERED: Vancomycin 1,250 MG/262.5 ML IV.SOLN IVPB SCH (14:00)
[2020-10-05] MEDS: Heparin 25,000UNIT/250ML 1/2NS 25,000 UNIT/250 ML IV.SOLN IVC SCH (15:50)
[2020-10-05] MEDS ORDERED: Piperacillin/Tazobactam 3.375 GM in 0.9 % Sodium Chloride Mini Bag 100 ML IVPB SCH (16:00)
[2020-10-06] MEDS: predniSONE 20 MG TABLET PO SCH ×2 (03:34→10:50)
[2020-10-06] MEDS: Budesonide/Formoterol 160/4.5 1 PUFF INH IH SCH ×2 (07:38→20:05)
[2020-10-06 08:27] LABS: Basophils # 0.1 K/mcL (0.0-0.2); Basophils % 0.7 %; Eosinophils # 0.5 K/mcL (0.0-0.6); Eosinophils % 7.6 %; Hematocrit 39.8 % (37.5-50.1); Immature Granulocytes % 0.1 % (0-4); Lymphocytes # 0.7 K/mcL (0.6-4.6); Lymphocytes % 9.7 %; Mean Corpuscular HGB Conc 29.6 g/dL (31.6-35.5); Mean Corpuscular Hemoglobin 26.1 pg (28.0-33.3); Mean Corpuscular Volume 88.1 fL (83.0-100.0); Mean Platelet Volume 9.7 fL (9.4-12.4); Monocytes # 0.5 K/mcL (0.0-1.3); Monocytes % 6.8 %; Neutrophils # 5.3 K/mcL (1.6-8.9); Platelet Count 231 K/mcL (140-400); Red Blood Count 4.52 M/mcL (4.19-5.50); Red Cell Distribution Width 13.2 % (11.5-14.5); Segmented Neutrophils % 75.1 %
[2020-10-06 08:33] LABS: Hemoglobin 11.8 g/dL (12.9-16.9)
[2020-10-06 10:05] LABS: BUN/Creatinine Ratio 11 (6-26); Blood Urea Nitrogen 6 mg/dL (8-23); Calcium 9.3 mg/dL (8.6-10.3); Carbon Dioxide 40 mEq/L (23-29); Chloride 90 mEq/L (98-107); Glucose 130 mg/dL (70-105); Osmolality,Calculated 279 (280-300); Potassium 3.9 mEq/L (3.5-5.1); Sodium 135 mEq/L (136-145); eGFR For African Americans > 60 (> 60); eGFR For Non-African Americans > 60 (> 60)
[2020-10-06] MEDS: Metoprolol XL (24 HR) Succ 25 MG TAB.ER.24H PO SCH ×2 (10:50→20:09)
[2020-10-06] MEDS: levoFLOXacin 750 MG TABLET PO SCH (10:50)
[2020-10-06] MEDS: GuaiFENesin Liq 200 MG/10 ML UDC PO SCH ×4 (10:50→20:09)
[2020-10-06 11:12] LABS: VBG HCO3 43 mEq/L (21-27); VBG PCO2 82 mmHg (41-51); VBG PH 7.33 pH Units (7.32-7.42); VBG PO2 37 mmHg (25-50)
[2020-10-06] MEDS: Heparin 25,000UNIT/250ML 1/2NS 25,000 UNIT/250 ML IV.SOLN IVC SCH (13:24)
[2020-10-06] MEDS: metroNIDAZOLE 500 MG TABLET PO SCH ×2 (16:21→20:08)
[2020-10-06] MEDS: *HR* Rivaroxaban 15 MG TABLET PO SCH (16:22)
[2020-10-06] MEDS ORDERED: *HR* Rivaroxaban 15 MG TABLET PO SCH (21:00)
[2020-10-07 04:38] LABS: Basophils % 0.1 %; Eosinophils % 0.1 %; Hematocrit 33.2 % (37.5-50.1); Hemoglobin 10.2 g/dL (12.9-16.9); Immature Granulocytes % 0.4 % (0-4); Lymphocytes # 0.5 K/mcL (0.6-4.6); Lymphocytes % 6.1 %; Mean Corpuscular HGB Conc 30.7 g/dL (31.6-35.5); Mean Corpuscular Hemoglobin 25.9 pg (28.0-33.3); Mean Corpuscular Volume 84.3 fL (83.0-100.0); Mean Platelet Volume 8.9 fL (9.4-12.4); Monocytes # 0.4 K/mcL (0.0-1.3); Neutrophils # 6.9 K/mcL (1.6-8.9); Platelet Count 278 K/mcL (140-400); Red Blood Count 3.94 M/mcL (4.19-5.50); Red Cell Distribution Width 13.1 % (11.5-14.5); Segmented Neutrophils % 88.3 %; White Blood Count 7.8 K/mcL (4.3-11.1)
[2020-10-07 04:56] LABS: BUN/Creatinine Ratio 18 (6-26); Blood Urea Nitrogen 9 mg/dL (8-23); Calcium 9.5 mg/dL (8.6-10.3); Carbon Dioxide 38 mEq/L (23-29); Chloride 90 mEq/L (98-107); Glucose 129 mg/dL (70-105); Osmolality,Calculated 278 (280-300); Potassium 4.3 mEq/L (3.5-5.1); Sodium 134 mEq/L (136-145); eGFR For African Americans > 60 (> 60); eGFR For Non-African Americans > 60 (> 60)
[2020-10-07 07:15] VITALS: BP 161/89
[2020-10-07] MEDS: Budesonide/Formoterol 160/4.5 1 PUFF INH IH SCH (07:46)
[2020-10-07 08:19] LABS: VBG HCO3 41 mEq/L (21-27); VBG PCO2 74 mmHg (41-51); VBG PH 7.35 pH Units (7.32-7.42); VBG PO2 49 mmHg (25-50)
[2020-10-07] MEDS: levoFLOXacin 750 MG TABLET PO SCH (08:32)
[2020-10-07] MEDS: metroNIDAZOLE 500 MG TABLET PO SCH (08:32)
[2020-10-07] MEDS: predniSONE 20 MG TABLET PO SCH (08:33)
[2020-10-07] MEDS: Metoprolol XL (24 HR) Succ 25 MG TAB.ER.24H PO SCH (08:33)
[2020-10-07] MEDS: *HR* Rivaroxaban 15 MG TABLET PO SCH (08:33)
[2020-10-07] MEDS: GuaiFENesin Liq 200 MG/10 ML UDC PO SCH (08:34)
== END 2020-10-07 12:05 | disposition home or self-care (01) | DRG 175 ==
LOC: EMEROOARM 16:05 → 2ANU 16:05
PROVIDERS: ADMIT Internal Medicine; ATTEND Internal Medicine

== ENCOUNTER 2021-01-27 17:47 | Inpatient (IN) ==
[2021-01-27] MEDS ORDERED: Naloxone 0.4 MG/ML INJ IVP PRN (22:19)
[2021-01-27] MEDS ORDERED: *HR* HYDROcodone/Acet 5/325 mg TABLET PO PRN (22:25)
[2021-01-27] MEDS ORDERED: Melatonin 3 MG TABLET PO PRN (22:25)
[2021-01-27] MEDS ORDERED: Ondansetron 4 MG/2 ML VIAL IVP PRN (22:25)
[2021-01-27] MEDS ORDERED: Acetaminophen 325 MG TABLET PO PRN (22:25)
[2021-01-27] MEDS ORDERED: *HR* Promethazine 25 MG/ML VIAL IM PRN (22:25)
[2021-01-28] MEDS: Furosemide 40 MG/4 ML VIAL IVP SCH ×3 (00:21→21:25)
[2021-01-28] MEDS: Azithromycin 500 MG in 0.9 % Sodium Chloride 250 ML IVPB SCH (03:25)
[2021-01-28 07:35] LABS: Basophils # 0.1 K/mcL (0.0-0.2); Basophils % 0.7 %; Eosinophils # 0.4 K/mcL (0.0-0.6); Eosinophils % 4.3 %; Hematocrit 33.5 % (37.5-50.1); Hemoglobin 9.9 g/dL (12.9-16.9); Immature Granulocytes % 0.4 % (0-4); Lymphocytes # 0.9 K/mcL (0.6-4.6); Lymphocytes % 9.9 %; Mean Corpuscular HGB Conc 29.6 g/dL (31.6-35.5); Mean Corpuscular Hemoglobin 26.8 pg (28.0-33.3); Mean Corpuscular Volume 90.5 fL (83.0-100.0); Monocytes # 0.7 K/mcL (0.0-1.3); Monocytes % 7.6 %; Neutrophils # 7.1 K/mcL (1.6-8.9); Platelet Count 251 K/mcL (140-400); Red Cell Distribution Width 13.2 % (11.5-14.5); Segmented Neutrophils % 77.1 %; White Blood Count 9.2 K/mcL (4.3-11.1)
[2021-01-28 07:50] LABS: INR 1.3; Prothrombin Time 15.3 Seconds (9.4-12.1)
[2021-01-28] MEDS: cefTRIAXone 1,000 MG in Water for inj. (sterile) 10 ML IVP SCH (08:20)
[2021-01-28 08:27] LABS: BUN/Creatinine Ratio 18 (6-26); Blood Urea Nitrogen 8 mg/dL (8-23); Calcium 9.7 mg/dL (8.6-10.3); Carbon Dioxide 44 mEq/L (23-29); Chloride 89 mEq/L (98-107); Glucose 95 mg/dL (70-105); Magnesium 1.7 mg/dL (1.6-2.6); Osmolality,Calculated 282 (280-300); Potassium 3.9 mEq/L (3.5-5.1); Sodium 137 mEq/L (136-145); eGFR For African Americans > 60 (> 60); eGFR For Non-African Americans > 60 (> 60)
[2021-01-28] MEDS ORDERED: *HR* Propofol 200 MG/20 ML VIAL IVP ONE (08:39)
[2021-01-28] MEDS ORDERED: *HR* FentaNYL (PF) 100 MCG/2 ML VIAL ONE (08:39)
[2021-01-28] MEDS ORDERED: *HR* Succinylcholine 200 MG/10 ML VIAL IVP ONE (08:41)
[2021-01-28] MEDS ORDERED: Ondansetron 4 MG/2 ML VIAL ONE (08:41)
[2021-01-28] MEDS ORDERED: Lidocaine -MPF 2% 2 ML VIAL ONE (08:41)
[2021-01-28] MEDS ORDERED: *HR* EPINEPHrine 1 MG/10 ML SYRINGE INTRATRACH PRN (10:30)
[2021-01-28] MEDS ORDERED: *HR* Metoprolol 5 MG/5 ML VIAL IVP PRN (12:32)
[2021-01-28] MEDS ORDERED: *HR* Metoprolol 5 MG/5 ML VIAL IVP ONE (12:32)
[2021-01-28] MEDS: GuaiFENesin Liq 200 MG/10 ML UDC PO SCH ×3 (12:55→21:24)
[2021-01-28] MEDS: Budesonide/Formoterol 160/4.5 1 PUFF INH IH SCH (20:58)
[2021-01-28] MEDS: Metoprolol XL (24 HR) Succ 25 MG TAB.ER.24H PO SCH (21:23)
[2021-01-29 02:10] LABS: Basophils # 0.1 K/mcL (0.0-0.2); Basophils % 0.5 %; Eosinophils # 0.5 K/mcL (0.0-0.6); Eosinophils % 4.2 %; Hematocrit 32.5 % (37.5-50.1); Hemoglobin 9.6 g/dL (12.9-16.9); Immature Granulocytes % 0.5 % (0-4); Lymphocytes % 9.2 %; Mean Corpuscular HGB Conc 29.5 g/dL (31.6-35.5); Mean Corpuscular Hemoglobin 26.4 pg (28.0-33.3); Mean Corpuscular Volume 89.5 fL (83.0-100.0); Mean Platelet Volume 8.7 fL (9.4-12.4); Monocytes # 1.1 K/mcL (0.0-1.3); Neutrophils # 8.1 K/mcL (1.6-8.9); Platelet Count 265 K/mcL (140-400); Red Blood Count 3.63 M/mcL (4.19-5.50); Red Cell Distribution Width 13.1 % (11.5-14.5); Segmented Neutrophils % 75.6 %; White Blood Count 10.6 K/mcL (4.3-11.1)
[2021-01-29 02:35] LABS: BUN/Creatinine Ratio 25 (6-26); Blood Urea Nitrogen 20 mg/dL (8-23); Calcium 9.4 mg/dL (8.6-10.3); Carbon Dioxide 43 mEq/L (23-29); Chloride 85 mEq/L (98-107); Glucose 92 mg/dL (70-105); Osmolality,Calculated 284 (280-300); Potassium 4.1 mEq/L (3.5-5.1); Sodium 136 mEq/L (136-145); eGFR For African Americans > 60 (> 60); eGFR For Non-African Americans > 60 (> 60)
[2021-01-29] MEDS: Azithromycin 500 MG in 0.9 % Sodium Chloride 250 ML IVPB SCH (03:28)
[2021-01-29] MEDS: Budesonide/Formoterol 160/4.5 1 PUFF INH IH SCH ×2 (07:44→21:56)
[2021-01-29] MEDS: Metoprolol XL (24 HR) Succ 25 MG TAB.ER.24H PO SCH ×2 (08:38→20:02)
[2021-01-29] MEDS: Cyanocobalamin (B-12) 1,000 MCG TABLET PO SCH (08:38)
[2021-01-29] MEDS: Furosemide 40 MG/4 ML VIAL IVP SCH ×2 (08:39→20:01)
[2021-01-29] MEDS: GuaiFENesin Liq 200 MG/10 ML UDC PO SCH ×4 (08:39→20:04)
[2021-01-29] MEDS: cefTRIAXone 1,000 MG in Water for inj. (sterile) 10 ML IVP SCH (08:39)
[2021-01-29] MEDS: Aspirin Enteric Coated 81 MG Tablet PO SCH (11:57)
[2021-01-30 03:17] LABS: Basophils % 0.3 %; Eosinophils # 0.5 K/mcL (0.0-0.6); Eosinophils % 3.4 %; Hematocrit 32.2 % (37.5-50.1); Immature Granulocytes % 0.4 % (0-4); Lymphocytes # 0.8 K/mcL (0.6-4.6); Lymphocytes % 5.7 %; Mean Corpuscular HGB Conc 31.1 g/dL (31.6-35.5); Mean Corpuscular Volume 86.8 fL (83.0-100.0); Mean Platelet Volume 8.9 fL (9.4-12.4); Monocytes # 1.2 K/mcL (0.0-1.3); Monocytes % 8.2 %; Neutrophils # 11.5 K/mcL (1.6-8.9); Platelet Count 303 K/mcL (140-400); Red Blood Count 3.71 M/mcL (4.19-5.50); Red Cell Distribution Width 13.1 % (11.5-14.5)
[2021-01-30 03:41] LABS: BUN/Creatinine Ratio 37 (6-26); Blood Urea Nitrogen 20 mg/dL (8-23); Calcium 9.3 mg/dL (8.6-10.3); Carbon Dioxide 42 mEq/L (23-29); Chloride 85 mEq/L (98-107); Glucose 113 mg/dL (70-105); Osmolality,Calculated 281 (280-300); Potassium 4.1 mEq/L (3.5-5.1); Sodium 134 mEq/L (136-145); eGFR For African Americans > 60 (> 60); eGFR For Non-African Americans > 60 (> 60)
[2021-01-30] MEDS: Azithromycin 500 MG in 0.9 % Sodium Chloride 250 ML IVPB SCH (04:13)
[2021-01-30] MEDS: Budesonide/Formoterol 160/4.5 1 PUFF INH IH SCH ×2 (07:47→20:18)
[2021-01-30] MEDS: cefTRIAXone 1,000 MG in Water for inj. (sterile) 10 ML IVP SCH (07:54)
[2021-01-30] MEDS: GuaiFENesin Liq 200 MG/10 ML UDC PO SCH ×4 (07:54→21:18)
[2021-01-30] MEDS: Metoprolol XL (24 HR) Succ 25 MG TAB.ER.24H PO SCH ×2 (07:55→21:19)
[2021-01-30] MEDS: Aspirin Enteric Coated 81 MG Tablet PO SCH (07:55)
[2021-01-30] MEDS: Cyanocobalamin (B-12) 1,000 MCG TABLET PO SCH (07:55)
[2021-01-30] MEDS: Piperacillin/Tazobactam 3.375 GM in 0.9 % Sodium Chloride Mini Bag 100 ML IVPB SCH (17:08)
[2021-01-31] MEDS: Piperacillin/Tazobactam 3.375 GM in 0.9 % Sodium Chloride Mini Bag 100 ML IVPB SCH ×3 (02:00→17:01)
[2021-01-31] MEDS: Azithromycin 500 MG in 0.9 % Sodium Chloride 250 ML IVPB SCH (02:17)
[2021-01-31 03:51] LABS: Basophils % 0.4 %; Eosinophils # 0.5 K/mcL (0.0-0.6); Eosinophils % 5.4 %; Hematocrit 33.6 % (37.5-50.1); Hemoglobin 10.1 g/dL (12.9-16.9); Immature Granulocytes % 0.4 % (0-4); Mean Corpuscular HGB Conc 30.1 g/dL (31.6-35.5); Mean Corpuscular Hemoglobin 26.8 pg (28.0-33.3); Mean Corpuscular Volume 89.1 fL (83.0-100.0); Mean Platelet Volume 8.3 fL (9.4-12.4); Monocytes # 0.8 K/mcL (0.0-1.3); Monocytes % 8.7 %; Neutrophils # 7.1 K/mcL (1.6-8.9); Platelet Count 298 K/mcL (140-400); Red Blood Count 3.77 M/mcL (4.19-5.50); Red Cell Distribution Width 13.1 % (11.5-14.5); Segmented Neutrophils % 75.1 %; White Blood Count 9.5 K/mcL (4.3-11.1)
[2021-01-31 04:14] LABS: BUN/Creatinine Ratio 20 (6-26); Blood Urea Nitrogen 12 mg/dL (8-23); Calcium 9.2 mg/dL (8.6-10.3); Carbon Dioxide 43 mEq/L (23-29); Chloride 89 mEq/L (98-107); Glucose 111 mg/dL (70-105); Osmolality,Calculated 280 (280-300); Potassium 3.7 mEq/L (3.5-5.1); Sodium 135 mEq/L (136-145); eGFR For African Americans > 60 (> 60); eGFR For Non-African Americans > 60 (> 60)
[2021-01-31 04:15] LABS: VBG HCO3 44 mEq/L (21-27); VBG PCO2 93 mmHg (41-51); VBG PH 7.28 pH Units (7.32-7.42); VBG PO2 38 mmHg (25-50)
[2021-01-31] MEDS: Budesonide/Formoterol 160/4.5 1 PUFF INH IH SCH ×2 (07:28→20:00)
[2021-01-31] MEDS: GuaiFENesin Liq 200 MG/10 ML UDC PO SCH ×4 (07:36→20:04)
[2021-01-31] MEDS: Aspirin Enteric Coated 81 MG Tablet PO SCH (07:36)
[2021-01-31] MEDS: Cyanocobalamin (B-12) 1,000 MCG TABLET PO SCH (07:36)
[2021-01-31] MEDS: Metoprolol XL (24 HR) Succ 25 MG TAB.ER.24H PO SCH ×2 (07:37→20:04)
[2021-01-31] MEDS ORDERED: Saline Nasal Spray 44 ML BOTTLE NS PRN (10:23)
[2021-01-31 10:46] LABS: VBG HCO3 39 mEq/L (21-27); VBG PCO2 74 mmHg (41-51); VBG PH 7.32 pH Units (7.32-7.42); VBG PO2 102 mmHg (25-50)
[2021-01-31 14:13] LABS: VBG HCO3 37 mEq/L (21-27); VBG PCO2 69 mmHg (41-51); VBG PH 7.34 pH Units (7.32-7.42); VBG PO2 94 mmHg (25-50)
[2021-02-01] MEDS: Piperacillin/Tazobactam 3.375 GM in 0.9 % Sodium Chloride Mini Bag 100 ML IVPB SCH ×2 (00:04→09:17)
[2021-02-01 01:05] LABS: Basophils % 0.3 %; Eosinophils # 0.6 K/mcL (0.0-0.6); Eosinophils % 6.7 %; Hematocrit 31.4 % (37.5-50.1); Hemoglobin 9.4 g/dL (12.9-16.9); Immature Granulocytes % 0.5 % (0-4); Lymphocytes % 11.3 %; Mean Corpuscular HGB Conc 29.9 g/dL (31.6-35.5); Mean Corpuscular Hemoglobin 26.7 pg (28.0-33.3); Mean Corpuscular Volume 89.2 fL (83.0-100.0); Mean Platelet Volume 8.6 fL (9.4-12.4); Monocytes # 0.8 K/mcL (0.0-1.3); Monocytes % 8.9 %; Neutrophils # 6.3 K/mcL (1.6-8.9); Platelet Count 307 K/mcL (140-400); Red Blood Count 3.52 M/mcL (4.19-5.50); Red Cell Distribution Width 13.2 % (11.5-14.5); Segmented Neutrophils % 72.3 %; White Blood Count 8.7 K/mcL (4.3-11.1)
[2021-02-01 01:28] LABS: BUN/Creatinine Ratio 21 (6-26); Blood Urea Nitrogen 14 mg/dL (8-23); Calcium 9.1 mg/dL (8.6-10.3); Carbon Dioxide 40 mEq/L (23-29); Chloride 90 mEq/L (98-107); Glucose 101 mg/dL (70-105); Osmolality,Calculated 279 (280-300); Potassium 4.2 mEq/L (3.5-5.1); Sodium 134 mEq/L (136-145); eGFR For African Americans > 60 (> 60); eGFR For Non-African Americans > 60 (> 60)
[2021-02-01 01:31] LABS: VBG HCO3 37 mEq/L (21-27); VBG PCO2 71 mmHg (41-51); VBG PH 7.33 pH Units (7.32-7.42); VBG PO2 37 mmHg (25-50)
[2021-02-01] MEDS: Azithromycin 500 MG in 0.9 % Sodium Chloride 250 ML IVPB SCH (03:22)
[2021-02-01] MEDS: Budesonide/Formoterol 160/4.5 1 PUFF INH IH SCH ×2 (08:02→20:32)
[2021-02-01] MEDS: GuaiFENesin Liq 200 MG/10 ML UDC PO SCH ×4 (08:43→21:05)
[2021-02-01] MEDS: Aspirin Enteric Coated 81 MG Tablet PO SCH (08:44)
[2021-02-01] MEDS: Cyanocobalamin (B-12) 1,000 MCG TABLET PO SCH (08:44)
[2021-02-01] MEDS: cefTRIAXone 2,000 MG in 0.9 % Sodium Chloride Mini Bag 100 ML IVPB SCH (08:45)
[2021-02-01] MEDS: Metoprolol XL (24 HR) Succ 25 MG TAB.ER.24H PO SCH ×2 (08:45→21:06)
[2021-02-01] MEDS: levoFLOXacin 750 MG/150 ML 750 MG/150 ML BAG IVPB SCH (08:45)
[2021-02-01] MEDS: metroNIDAZOLE 500 MG TABLET PO SCH (21:05)
[2021-02-02 02:31] LABS: Hematocrit 32.6 % (37.5-50.1); Hemoglobin 9.8 g/dL (12.9-16.9); Mean Corpuscular HGB Conc 30.1 g/dL (31.6-35.5); Mean Corpuscular Hemoglobin 26.6 pg (28.0-33.3); Mean Corpuscular Volume 88.3 fL (83.0-100.0); Mean Platelet Volume 8.6 fL (9.4-12.4); Platelet Count 302 K/mcL (140-400); Red Blood Count 3.69 M/mcL (4.19-5.50); Red Cell Distribution Width 13.1 % (11.5-14.5); White Blood Count 10.3 K/mcL (4.3-11.1)
[2021-02-02 02:51] LABS: BUN/Creatinine Ratio 18 (6-26); Blood Urea Nitrogen 10 mg/dL (8-23); Calcium 9.2 mg/dL (8.6-10.3); Carbon Dioxide 36 mEq/L (23-29); Chloride 92 mEq/L (98-107); Glucose 97 mg/dL (70-105); Osmolality,Calculated 275 (280-300); Potassium 4.5 mEq/L (3.5-5.1); Sodium 133 mEq/L (136-145); eGFR For African Americans > 60 (> 60); eGFR For Non-African Americans > 60 (> 60)
[2021-02-02] MEDS: Budesonide/Formoterol 160/4.5 1 PUFF INH IH SCH (07:25)
[2021-02-02 07:46] VITALS: BP 121/72
[2021-02-02] MEDS: Aspirin Enteric Coated 81 MG Tablet PO SCH (09:15)
[2021-02-02] MEDS: Cyanocobalamin (B-12) 1,000 MCG TABLET PO SCH (09:15)
[2021-02-02] MEDS: Metoprolol XL (24 HR) Succ 25 MG TAB.ER.24H PO SCH (09:15)
[2021-02-02] MEDS: GuaiFENesin Liq 200 MG/10 ML UDC PO SCH ×2 (09:15→15:15)
[2021-02-02] MEDS: cefTRIAXone 2,000 MG in 0.9 % Sodium Chloride Mini Bag 100 ML IVPB SCH (09:15)
[2021-02-02] MEDS: metroNIDAZOLE 500 MG TABLET PO SCH (09:15)
[2021-02-02] MEDS: levoFLOXacin 750 MG/150 ML 750 MG/150 ML BAG IVPB SCH (09:16)
[2021-02-03] MEDS ORDERED: levoFLOXacin 750 MG TABLET PO SCH (09:00)
[2021-02-03] MEDS ORDERED: cephALEXin 500 MG CAPSULE PO SCH (09:00)
== END 2021-02-02 15:16 | disposition home health service (06) | DRG 177 ==
LOC: 2ANU → SUATTDRO 21:42
PROVIDERS: ADMIT Internal Medicine; ATTEND Family Medicine

== ENCOUNTER 2021-02-16 20:43 | Inpatient (IN) ==
[2021-02-16] MEDS ORDERED: Ondansetron 4 MG/2 ML VIAL ONE ×2 (20:48→20:49)
[2021-02-16] MEDS ORDERED: Ipratropium/Albuterol Neb 3 ML ONE (20:50)
[2021-02-16] MEDS ORDERED: methylPREDNISolone 125 MG/2 ML VIAL IVP ONE (20:51)
[2021-02-16] MEDS ORDERED: Ipratropium/Albuterol Neb 3 ML IH ONE (20:51)
[2021-02-16] MEDS ORDERED: Isovue-370 500 ML BOTTLE IVP ONE (20:51)
[2021-02-16] MEDS ORDERED: Ondansetron 4 MG/2 ML VIAL IVP ONE (20:52)
[2021-02-16] MEDS ORDERED: 0.9 % Sodium Chloride 1,000 ML ONE ×2 (21:02→21:28)
[2021-02-16 21:11] LABS: ABG Base Excess 6 mEq/L (-2 to 3); ABG HCO3 34 mEq/L (21-27); ABG Oxygen Saturation 83 % (95-98); ABG PCO2 63 mmHg (35-45); ABG PH 7.34 pH Units (7.32-7.45); ABG PO2 52 mmHg (85-104); ABG TCO2 36 mEq/L (20-26)
[2021-02-16 21:13] LABS: Basophils % 0.1 %; Eosinophils % 0.1 %; Hematocrit 31.8 % (37.5-50.1); Hemoglobin 9.4 g/dL (12.9-16.9); Immature Granulocytes % 0.4 % (0-4); Lymphocytes # 0.5 K/mcL (0.6-4.6); Lymphocytes % 2.9 %; Mean Corpuscular HGB Conc 29.6 g/dL (31.6-35.5); Mean Corpuscular Hemoglobin 26.8 pg (28.0-33.3); Mean Corpuscular Volume 90.6 fL (83.0-100.0); Mean Platelet Volume 8.7 fL (9.4-12.4); Monocytes # 0.3 K/mcL (0.0-1.3); Monocytes % 1.8 %; Neutrophils # 15.2 K/mcL (1.6-8.9); Nucleated Red Blood Cells 0.1 /100 WBC (0); Platelet Count 229 K/mcL (140-400); Red Blood Count 3.51 M/mcL (4.19-5.50); Red Cell Distribution Width 13.6 % (11.5-14.5); Segmented Neutrophils % 94.7 %; White Blood Count 16.1 K/mcL (4.3-11.1)
[2021-02-16 21:20] LABS: INR 1.4; Prothrombin Time 16.4 Seconds (9.4-12.1)
[2021-02-16] MEDS ORDERED: Phenylephrine 10 MG in 0.9 % Sodium Chloride 250 ML IVC SCH (21:30)
[2021-02-16] MEDS ORDERED: 0.9 % Sodium Chloride 1,000 ML IVC ONE ×2 (21:30→21:41)
[2021-02-16 21:34] LABS: BUN/Creatinine Ratio 27 (6-26); Blood Urea Nitrogen 20 mg/dL (8-23); Calcium 8.4 mg/dL (8.6-10.3); Carbon Dioxide 33 mEq/L (23-29); Chloride 93 mEq/L (98-107); Glucose 112 mg/dL (70-105); Osmolality,Calculated 285 (280-300); Potassium 4.2 mEq/L (3.5-5.1); Sodium 136 mEq/L (136-145); eGFR For African Americans > 60 (> 60); eGFR For Non-African Americans > 60 (> 60)
[2021-02-16 21:35] LABS: Troponin I < 0.03 ng/mL (< 0.04)
[2021-02-16] MEDS ORDERED: Piperacillin/Tazobactam 3.375 GM in 0.9 % Sodium Chloride Mini Bag 100 ML IVPB ONE (21:44)
[2021-02-16] MEDS: DilTIAZem 50 MG/50 ML IV.SOLN IVC SCH (22:27)
[2021-02-17] MEDS ORDERED: Naloxone 0.4 MG/ML INJ IVP PRN (00:52)
[2021-02-17] MEDS ORDERED: Ondansetron 4 MG/2 ML VIAL IVP PRN (00:52)
[2021-02-17] MEDS ORDERED: Perflutren Lipid Microsphere 1.3 ML in 0.9 % Sodium Chloride 8.7 ML IVP PRN (00:58)
[2021-02-17] MEDS: Phenylephrine 50 MG in 0.9 % Sodium Chloride 250 ML IVC SCH ×2 (02:04→23:53)
[2021-02-17] MEDS: DilTIAZem 50 MG/50 ML IV.SOLN IVC SCH (02:05)
[2021-02-17 04:32] LABS: Red Blood Count 3.38 M/mcL (4.19-5.50)
[2021-02-17 04:33] LABS: Hematocrit 30.9 % (37.5-50.1); Hemoglobin 9.2 g/dL (12.9-16.9); Mean Corpuscular HGB Conc 29.8 g/dL (31.6-35.5); Mean Corpuscular Hemoglobin 27.2 pg (28.0-33.3); Mean Corpuscular Volume 91.4 fL (83.0-100.0); Mean Platelet Volume 9.3 fL (9.4-12.4); Platelet Count 235 K/mcL (140-400); Red Cell Distribution Width 13.8 % (11.5-14.5)
[2021-02-17 04:34] LABS: White Blood Count 35.1 K/mcL (4.3-11.1)
[2021-02-17 04:52] LABS: Alanine Aminotransferase 39 Units/L (7-52); Albumin 3.3 g/dL (3.5-5.7); Albumin/Globulin Ratio 1.4 (1.1-2.2); Alkaline Phosphatase 69 Units/L (34-104); Aspartate Amino Transferase 45 Units/L (13-39); BUN/Creatinine Ratio 30 (6-26); Bilirubin,Total 0.6 mg/dL (0.3-1.0); Blood Urea Nitrogen 20 mg/dL (8-23); Calcium 7.8 mg/dL (8.6-10.3); Carbon Dioxide 30 mEq/L (23-29); Chloride 98 mEq/L (98-107); Globulin 2.4 g/dL (2.4-3.5); Glucose 121 mg/dL (70-105); Magnesium 1.5 mg/dL (1.6-2.6); Osmolality,Calculated 288 (280-300); Potassium 4.6 mEq/L (3.5-5.1); Sodium 137 mEq/L (136-145); Total Protein 5.7 g/dL (6.4-8.9); eGFR For African Americans > 60 (> 60); eGFR For Non-African Americans > 60 (> 60)
[2021-02-17 04:54] LABS: Large Platelets Present (Not Present); Monocytes # 2.1 K/mcL (0.0-1.3); Platelet Estimate Normal (Normal)
[2021-02-17 05:05] LABS: Thyroid Stimulating Hormone 0.091 mcIU/mL (0.340-5.600)
[2021-02-17 05:36] LABS: INR 1.3; Prothrombin Time 15.4 Seconds (9.4-12.1)
[2021-02-17 05:50] LABS: Troponin I 0.11 ng/mL (< 0.04)
[2021-02-17] MEDS: methylPREDNISolone 125 MG/2 ML VIAL IVP SCH ×4 (06:08→23:53)
[2021-02-17] MEDS: Ipratropium/Albuterol Neb 3 ML IH SCH ×4 (07:41→20:07)
[2021-02-17] MEDS: Cefepime HCl 1,000 MG in Water for inj. (sterile) 10 ML IVP SCH ×3 (08:32→23:52)
[2021-02-17] MEDS ORDERED: Lidocaine Viscous Oral Soln 15 ML SOLUTION ONE (09:13)
[2021-02-17] MEDS ORDERED: *HR* EPINEPHrine 1 MG/10 ML SYRINGE INTRATRACH PRN (09:14)
[2021-02-17] MEDS ORDERED: *HR* Midazolam HCl 5 MG/5 ML VIAL IVP ONE (09:14)
[2021-02-17] MEDS ORDERED: *HR* FentaNYL (PF) 100 MCG/2 ML VIAL IVP ONE (09:14)
[2021-02-17] MEDS ORDERED: Lidocaine Viscous Oral Soln 15 ML SOLUTION MM ONE (09:14)
[2021-02-17 09:27] LABS: Bacteria,Urine Few per hpf (None-Few); Bilirubin,Urine Negative (Negative); Blood,Urine Negative (Negative); Clarity,Urine Clear (Clear); Color,Urine Light-Yellow (Yellow); Glucose,Urine (UA) Normal (Normal); Hyaline Casts,Urine Few per lpf (None Seen); Ketones,Urine 10 mg/dL (Negative); Leukocyte Esterase,Urine Negative (Negative); Mucus,Urine Few per lpf (None-Few); Nitrite,Urine Negative (Negative); Protein,Urine 30 mg/dL (Neg-Trace); RBC,Urine 0-3 per hpf (0-3); Specific Gravity,Urine > 1.030 (1.010-1.025); Urobilinogen,Urine Normal (Normal); WBC,Urine 0-3 per hpf (0-3)
[2021-02-17] MEDS ORDERED: levoFLOXacin 750 MG/150 ML 750 MG/150 ML BAG IVPB ONE (11:54)
[2021-02-17 15:55] LABS: Adenovirus Not Detected (Not Detect); Bordetella Pertussis Not Detected (Not Detect); Chlamydophila pneumoniae Not Detected (Not Detect); Coronavirus 229E Not Detected (Not Detect); Coronavirus HKU1 Not Detected (Not Detect); Coronavirus NL63 Not Detected (Not Detect); Coronavirus OC43 Not Detected (Not Detect); Human Metapneumovirus Not Detected (Not Detect); Human Rhinovirus/Enterovirus Not Detected (Not Detect); Influenza A Subtype 2009 H1 Not Detected (Not Detect); Influenza B Not Detected (Not Detect); Mycoplasma pneumoniae Not Detected (Not Detect); Parainfluenza Virus 1 Not Detected (Not Detect); Parainfluenza Virus 2 Not Detected (Not Detect); Parainfluenza Virus 3 Not Detected (Not Detect); Parainfluenza Virus 4 Not Detected (Not Detect); Respiratory Syncytial Virus Not Detected (Not Detect); SARS-CoV-2 Not Detected (Not Detect)
[2021-02-18] MEDS: Ipratropium/Albuterol Neb 3 ML IH SCH ×8 (00:25→23:15)
[2021-02-18 04:06] LABS: Basophils % 0.1 %; Hematocrit 27.8 % (37.5-50.1); Hemoglobin 8.4 g/dL (12.9-16.9); Immature Granulocytes % 0.7 % (0-4); Lymphocytes # 0.3 K/mcL (0.6-4.6); Lymphocytes % 1.3 %; Mean Corpuscular HGB Conc 30.2 g/dL (31.6-35.5); Mean Corpuscular Hemoglobin 27.4 pg (28.0-33.3); Mean Corpuscular Volume 90.6 fL (83.0-100.0); Mean Platelet Volume 9.3 fL (9.4-12.4); Monocytes # 0.7 K/mcL (0.0-1.3); Monocytes % 3.5 %; Platelet Count 150 K/mcL (140-400); Red Blood Count 3.07 M/mcL (4.19-5.50); Red Cell Distribution Width 13.6 % (11.5-14.5); Segmented Neutrophils % 94.4 %
[2021-02-18 04:18] LABS: BUN/Creatinine Ratio 48 (6-26); Blood Urea Nitrogen 19 mg/dL (8-23); Calcium 8.5 mg/dL (8.6-10.3); Carbon Dioxide 35 mEq/L (23-29); Chloride 96 mEq/L (98-107); Glucose 142 mg/dL (70-105); Osmolality,Calculated 293 (280-300); Potassium 4.9 mEq/L (3.5-5.1); Sodium 139 mEq/L (136-145); eGFR For African Americans > 60 (> 60); eGFR For Non-African Americans > 60 (> 60)
[2021-02-18] MEDS: methylPREDNISolone 125 MG/2 ML VIAL IVP SCH ×3 (05:27→23:43)
[2021-02-18] MEDS: Cefepime HCl 1,000 MG in Water for inj. (sterile) 10 ML IVP SCH ×3 (08:26→23:43)
[2021-02-18] MEDS ORDERED: Metoprolol XL (24 HR) Succ 25 MG TAB.ER.24H PO SCH ×3 (09:15→21:00)
[2021-02-18] MEDS: Acetaminophen 325 MG TABLET PO PRN (15:23)
[2021-02-18] MEDS ORDERED: Metoprolol XL (24 HR) Succ 25 MG TAB.ER.24H PO ONE (16:24)
[2021-02-18] MEDS: DilTIAZem 50 MG/50 ML IV.SOLN IVC SCH (22:13)
[2021-02-18] MEDS: Dexmedetomidine HCl 400 MCG/100 ML MLS IVC SCH (23:44)
[2021-02-18] MEDS: Phenylephrine 50 MG in 0.9 % Sodium Chloride 250 ML IVC SCH (23:53)
[2021-02-19 04:11] LABS: BUN/Creatinine Ratio 46 (6-26); Blood Urea Nitrogen 18 mg/dL (8-23); Calcium 8.8 mg/dL (8.6-10.3); Carbon Dioxide 39 mEq/L (23-29); Chloride 94 mEq/L (98-107); Glucose 138 mg/dL (70-105); Osmolality,Calculated 290 (280-300); Potassium 4.5 mEq/L (3.5-5.1); Sodium 138 mEq/L (136-145); eGFR For African Americans > 60 (> 60); eGFR For Non-African Americans > 60 (> 60)
[2021-02-19 04:14] LABS: Basophils % 0.1 %; Hematocrit 28.4 % (37.5-50.1); Hemoglobin 8.5 g/dL (12.9-16.9); Immature Granulocytes % 0.6 % (0-4); Lymphocytes # 0.2 K/mcL (0.6-4.6); Lymphocytes % 1.6 %; Mean Corpuscular HGB Conc 29.9 g/dL (31.6-35.5); Mean Corpuscular Hemoglobin 27.1 pg (28.0-33.3); Mean Corpuscular Volume 90.4 fL (83.0-100.0); Mean Platelet Volume 9.5 fL (9.4-12.4); Monocytes # 0.4 K/mcL (0.0-1.3); Monocytes % 2.6 %; Neutrophils # 13.7 K/mcL (1.6-8.9); Nucleated Red Blood Cells 0.4 /100 WBC (0); Platelet Count 154 K/mcL (140-400); Red Blood Count 3.14 M/mcL (4.19-5.50); Red Cell Distribution Width 13.5 % (11.5-14.5); Segmented Neutrophils % 95.1 %; White Blood Count 14.4 K/mcL (4.3-11.1)
[2021-02-19] MEDS: Ipratropium/Albuterol Neb 3 ML IH SCH ×6 (04:17→23:57)
[2021-02-19] MEDS: Cefepime HCl 1,000 MG in Water for inj. (sterile) 10 ML IVP SCH ×3 (07:53→23:26)
[2021-02-19] MEDS: methylPREDNISolone 125 MG/2 ML VIAL IVP SCH ×3 (07:55→23:26)
[2021-02-19] MEDS: Metoprolol XL (24 HR) Succ 25 MG TAB.ER.24H PO SCH ×2 (08:03→20:02)
[2021-02-19] MEDS: Budesonide/Formoterol 160/4.5 1 PUFF INH IH SCH ×2 (08:14→20:06)
[2021-02-19] MEDS: Acetaminophen 325 MG TABLET PO PRN (15:09)
[2021-02-19] MEDS: DilTIAZem 50 MG/50 ML IV.SOLN IVC SCH (23:27)
[2021-02-19] MEDS: Vancomycin 1,250 MG/262.5 ML IV.SOLN IVPB SCH (23:32)
[2021-02-20] MEDS: Phenylephrine 50 MG in 0.9 % Sodium Chloride 250 ML IVC SCH (01:27)
[2021-02-20] MEDS: Ipratropium/Albuterol Neb 3 ML IH SCH ×6 (03:35→23:38)
[2021-02-20 04:04] LABS: Hematocrit 29.5 % (37.5-50.1); Hemoglobin 8.9 g/dL (12.9-16.9); Immature Granulocytes % 0.5 % (0-4); Lymphocytes # 0.3 K/mcL (0.6-4.6); Lymphocytes % 2.6 %; Mean Corpuscular HGB Conc 30.2 g/dL (31.6-35.5); Mean Corpuscular Volume 89.4 fL (83.0-100.0); Mean Platelet Volume 9.5 fL (9.4-12.4); Monocytes # 0.3 K/mcL (0.0-1.3); Monocytes % 2.8 %; Neutrophils # 9.8 K/mcL (1.6-8.9); Nucleated Red Blood Cells 0.6 /100 WBC (0); Platelet Count 180 K/mcL (140-400); Red Cell Distribution Width 13.2 % (11.5-14.5); Segmented Neutrophils % 94.1 %; White Blood Count 10.4 K/mcL (4.3-11.1)
[2021-02-20 04:23] LABS: BUN/Creatinine Ratio 45 (6-26); Blood Urea Nitrogen 18 mg/dL (8-23); Calcium 8.8 mg/dL (8.6-10.3); Carbon Dioxide 44 mEq/L (23-29); Chloride 91 mEq/L (98-107); Glucose 132 mg/dL (70-105); Osmolality,Calculated 292 (280-300); Potassium 4.3 mEq/L (3.5-5.1); Sodium 139 mEq/L (136-145); eGFR For African Americans > 60 (> 60); eGFR For Non-African Americans > 60 (> 60)
[2021-02-20] MEDS: Budesonide/Formoterol 160/4.5 1 PUFF INH IH SCH ×2 (07:56→19:27)
[2021-02-20] MEDS: Dexmedetomidine HCl 400 MCG/100 ML MLS IVC SCH ×2 (09:21→17:19)
[2021-02-20] MEDS: methylPREDNISolone 125 MG/2 ML VIAL IVP SCH ×2 (09:22→16:00)
[2021-02-20] MEDS: Cefepime HCl 1,000 MG in Water for inj. (sterile) 10 ML IVP SCH ×3 (09:22→23:38)
[2021-02-20] MEDS: Metoprolol XL (24 HR) Succ 25 MG TAB.ER.24H PO SCH ×2 (09:24→20:51)
[2021-02-20] MEDS: Vancomycin 1,250 MG/262.5 ML IV.SOLN IVPB SCH (12:27)
[2021-02-20] MEDS: Acetaminophen 325 MG TABLET PO PRN (20:51)
[2021-02-20] MEDS: DilTIAZem 50 MG/50 ML IV.SOLN IVC SCH (22:47)
[2021-02-21] MEDS: Vancomycin 1,250 MG/262.5 ML IV.SOLN IVPB SCH (00:01)
[2021-02-21] MEDS: Phenylephrine 50 MG in 0.9 % Sodium Chloride 250 ML IVC SCH (01:32)
[2021-02-21] MEDS: Ipratropium/Albuterol Neb 3 ML IH SCH ×6 (03:40→23:44)
[2021-02-21] MEDS: MethylPREDNISolone 40 MG/ML VIAL IVP SCH ×2 (06:35→17:24)
[2021-02-21] MEDS: Budesonide/Formoterol 160/4.5 1 PUFF INH IH SCH ×2 (07:22→20:20)
[2021-02-21 07:28] LABS: Basophils % 0.1 %; Hematocrit 34.1 % (37.5-50.1); Hemoglobin 10.3 g/dL (12.9-16.9); Immature Granulocytes % 0.6 % (0-4); Lymphocytes # 0.5 K/mcL (0.6-4.6); Lymphocytes % 3.5 %; Mean Corpuscular HGB Conc 30.2 g/dL (31.6-35.5); Mean Corpuscular Hemoglobin 26.6 pg (28.0-33.3); Mean Corpuscular Volume 88.1 fL (83.0-100.0); Mean Platelet Volume 9.2 fL (9.4-12.4); Monocytes # 0.8 K/mcL (0.0-1.3); Monocytes % 5.6 %; Neutrophils # 12.4 K/mcL (1.6-8.9); Nucleated Red Blood Cells 0.1 /100 WBC (0); Platelet Count 239 K/mcL (140-400); Red Blood Count 3.87 M/mcL (4.19-5.50); Red Cell Distribution Width 13.4 % (11.5-14.5); Segmented Neutrophils % 90.2 %; White Blood Count 13.7 K/mcL (4.3-11.1)
[2021-02-21 07:33] LABS: VBG Ionized Calcium 1.15 mmol/L (1.15-1.35)
[2021-02-21 07:48] LABS: Alanine Aminotransferase 35 Units/L (7-52); Albumin 3.5 g/dL (3.5-5.7); Albumin/Globulin Ratio 1.2 (1.1-2.2); Alkaline Phosphatase 88 Units/L (34-104); Aspartate Amino Transferase 20 Units/L (13-39); BUN/Creatinine Ratio 45 (6-26); Bilirubin,Total 0.6 mg/dL (0.3-1.0); Blood Urea Nitrogen 19 mg/dL (8-23); Calcium 8.9 mg/dL (8.6-10.3); Carbon Dioxide 45 mEq/L (23-29); Chloride 89 mEq/L (98-107); Glucose 115 mg/dL (70-105); Magnesium 1.7 mg/dL (1.6-2.6); Osmolality,Calculated 283 (280-300); Phosphorous 2.6 mg/dL (2.7-4.5); Potassium 4.3 mEq/L (3.5-5.1); Sodium 135 mEq/L (136-145); Total Protein 6.5 g/dL (6.4-8.9); eGFR For African Americans > 60 (> 60); eGFR For Non-African Americans > 60 (> 60)
[2021-02-21] MEDS: Metoprolol XL (24 HR) Succ 25 MG TAB.ER.24H PO SCH ×2 (08:00→19:39)
[2021-02-21] MEDS: Cefepime HCl 1,000 MG in Water for inj. (sterile) 10 ML IVP SCH ×2 (08:00→17:22)
[2021-02-21] MEDS: Vancomycin 1,500 MG/265 ML IV.SOLN IVPB SCH (13:00)
[2021-02-21] MEDS ORDERED: Water for inj. (sterile) 10 ML ONE (17:19)
[2021-02-21] MEDS: Acetaminophen 325 MG TABLET PO PRN (19:34)
[2021-02-21] MEDS: Dexmedetomidine HCl 400 MCG/100 ML MLS IVC SCH (19:38)
[2021-02-21] MEDS: DilTIAZem 50 MG/50 ML IV.SOLN IVC SCH (19:39)
[2021-02-22] MEDS: Cefepime HCl 1,000 MG in Water for inj. (sterile) 10 ML IVP SCH ×4 (00:36→23:39)
[2021-02-22] MEDS: Vancomycin 1,500 MG/265 ML IV.SOLN IVPB SCH (00:37)
[2021-02-22] MEDS: Phenylephrine 50 MG in 0.9 % Sodium Chloride 250 ML IVC SCH (00:41)
[2021-02-22] MEDS: Ipratropium/Albuterol Neb 3 ML IH SCH ×5 (03:54→20:28)
[2021-02-22] MEDS: MethylPREDNISolone 40 MG/ML VIAL IVP SCH ×2 (05:33→16:28)
[2021-02-22] MEDS: Metoprolol XL (24 HR) Succ 25 MG TAB.ER.24H PO SCH ×2 (09:14→20:52)
[2021-02-22] MEDS: Vancomycin 1,250 MG/262.5 ML IV.SOLN IVPB SCH (09:42)
[2021-02-22] MEDS ORDERED: Ondansetron 4 MG/2 ML VIAL IVP PRN (09:44)
[2021-02-22] MEDS ORDERED: Naloxone 0.4 MG/ML INJ IVP PRN (09:44)
[2021-02-22 10:33] LABS: Basophils % 0.1 %; Hematocrit 34.8 % (37.5-50.1); Hemoglobin 10.8 g/dL (12.9-16.9); Immature Granulocytes % 0.4 % (0-4); Lymphocytes # 0.3 K/mcL (0.6-4.6); Lymphocytes % 2.2 %; Mean Corpuscular Hemoglobin 26.6 pg (28.0-33.3); Mean Corpuscular Volume 85.7 fL (83.0-100.0); Mean Platelet Volume 9.6 fL (9.4-12.4); Monocytes # 0.8 K/mcL (0.0-1.3); Monocytes % 5.3 %; Platelet Count 249 K/mcL (140-400); Red Blood Count 4.06 M/mcL (4.19-5.50); Red Cell Distribution Width 13.4 % (11.5-14.5); White Blood Count 14.2 K/mcL (4.3-11.1)
[2021-02-22 10:35] LABS: VBG Ionized Calcium 1.17 mmol/L (1.15-1.35)
[2021-02-22 11:00] LABS: Alanine Aminotransferase 38 Units/L (7-52); Albumin 3.5 g/dL (3.5-5.7); Albumin/Globulin Ratio 1.3 (1.1-2.2); Alkaline Phosphatase 81 Units/L (34-104); Aspartate Amino Transferase 23 Units/L (13-39); BUN/Creatinine Ratio 51 (6-26); Bilirubin,Total 0.6 mg/dL (0.3-1.0); Blood Urea Nitrogen 25 mg/dL (8-23); Calcium 8.8 mg/dL (8.6-10.3); Carbon Dioxide 39 mEq/L (23-29); Chloride 88 mEq/L (98-107); Globulin 2.6 g/dL (2.4-3.5); Glucose 175 mg/dL (70-105); Magnesium 1.7 mg/dL (1.6-2.6); Osmolality,Calculated 285 (280-300); Phosphorous 2.8 mg/dL (2.7-4.5); Potassium 4.1 mEq/L (3.5-5.1); Sodium 133 mEq/L (136-145); Total Protein 6.1 g/dL (6.4-8.9); eGFR For African Americans > 60 (> 60); eGFR For Non-African Americans > 60 (> 60)
[2021-02-22] MEDS: Budesonide/Formoterol 160/4.5 1 PUFF INH IH SCH ×2 (11:04→20:28)
[2021-02-22] MEDS ORDERED: Mag Hydrox/Al Hydrox/Simeth 30 ML UDC PO PRN (15:08)
[2021-02-22] MEDS: Famotidine 20 MG/2 ML VIAL IVP SCH (16:29)
[2021-02-22] MEDS: amLODIPine 5 MG TABLET PO SCH (19:35)
[2021-02-22] MEDS ORDERED: Melatonin 3 MG TABLET PO ONE (21:39)
[2021-02-22] MEDS: Acetaminophen 325 MG TABLET PO PRN (22:18)
[2021-02-23] MEDS: Ipratropium/Albuterol Neb 3 ML IH SCH ×4 (00:09→11:17)
[2021-02-23 03:23] LABS: VBG Ionized Calcium 1.12 mmol/L (1.15-1.35)
[2021-02-23 03:48] LABS: Basophils % 0.1 %; Hematocrit 36.3 % (37.5-50.1); Hemoglobin 11.3 g/dL (12.9-16.9); Immature Granulocytes % 0.4 % (0-4); Lymphocytes # 0.7 K/mcL (0.6-4.6); Lymphocytes % 3.4 %; Mean Corpuscular HGB Conc 31.1 g/dL (31.6-35.5); Mean Corpuscular Hemoglobin 26.2 pg (28.0-33.3); Mean Corpuscular Volume 84.2 fL (83.0-100.0); Mean Platelet Volume 9.3 fL (9.4-12.4); Monocytes # 1.1 K/mcL (0.0-1.3); Monocytes % 5.3 %; Neutrophils # 18.6 K/mcL (1.6-8.9); Nucleated Red Blood Cells 0.1 /100 WBC (0); Platelet Count 271 K/mcL (140-400); Red Blood Count 4.31 M/mcL (4.19-5.50); Red Cell Distribution Width 13.6 % (11.5-14.5); Segmented Neutrophils % 90.8 %; White Blood Count 20.4 K/mcL (4.3-11.1)
[2021-02-23 04:07] LABS: Alanine Aminotransferase 34 Units/L (7-52); Albumin 3.6 g/dL (3.5-5.7); Albumin/Globulin Ratio 1.4 (1.1-2.2); Alkaline Phosphatase 77 Units/L (34-104); Aspartate Amino Transferase 17 Units/L (13-39); BUN/Creatinine Ratio 47 (6-26); Bilirubin,Total 0.7 mg/dL (0.3-1.0); Blood Urea Nitrogen 20 mg/dL (8-23); Carbon Dioxide 37 mEq/L (23-29); Chloride 88 mEq/L (98-107); Globulin 2.6 g/dL (2.4-3.5); Glucose 123 mg/dL (70-105); Magnesium 1.7 mg/dL (1.6-2.6); Osmolality,Calculated 276 (280-300); Phosphorous 3.4 mg/dL (2.7-4.5); Potassium 4.5 mEq/L (3.5-5.1); Sodium 131 mEq/L (136-145); Total Protein 6.2 g/dL (6.4-8.9); eGFR For African Americans > 60 (> 60); eGFR For Non-African Americans > 60 (> 60)
[2021-02-23] MEDS: Acetaminophen 325 MG TABLET PO PRN (05:06)
[2021-02-23] MEDS: MethylPREDNISolone 40 MG/ML VIAL IVP SCH (05:09)
[2021-02-23] MEDS: Famotidine 20 MG/2 ML VIAL IVP SCH (05:11)
[2021-02-23 07:10] VITALS: O2SAT 97
[2021-02-23] MEDS: Budesonide/Formoterol 160/4.5 1 PUFF INH IH SCH (07:23)
[2021-02-23] MEDS: amLODIPine 5 MG TABLET PO SCH (09:05)
[2021-02-23] MEDS: Cefepime HCl 1,000 MG in Water for inj. (sterile) 10 ML IVP SCH (09:06)
[2021-02-23] MEDS: Metoprolol XL (24 HR) Succ 25 MG TAB.ER.24H PO SCH (09:06)
[2021-02-23 10:41] VITALS: BP 107/86; PULSE 66; TEMP 98
== END 2021-02-23 11:30 | disposition short-term general hospital (02) | DRG 871 ==
LOC: EMEROOARM 20:43 → ICNU 20:43 → OBSVTOIN 02-17 01:03 → SUATTDRO 02-17 01:03 → ICNU 02-17 01:05 → 2NNU 02-20 18:40
PROVIDERS: ADMIT Internal Medicine; ATTEND Student in an Organized Health Care Education/Training Program